=== PATIENT | male | born 1980 | race Two or more races ===

== ENCOUNTER 2019-12-26 19:57 | Emergency (ER) | payer BC, OTHER ==
[~2019-12-26] VITALS: Ht 172.7 cm; Wt 91.2 kg
[~2019-12-26 19:57] MED LIST: AZITHROMYCIN250 MG PO; CETIRIZINE HCL5 MG PO; DUONEB NEB; MULTI-VITAMIN1 EACH PO; PREDNISONE20 MG PO; SUMATRIPTAN SUC25 MG PO; SYMBICORT 16010.2 GM; SYMBICORT 16010.2 GM INH; TAMIFLU75 MG PO; ZOFRAN4 MG SL
--- OUTSIDE RECORDS SUMMARY | 2019-12-26 19:59 | XMS REPORT | Summary of Care ---
Author Author [facility] - Health Organization [facility] - Health Address Unknown Phone Unavailable Care Team Providers Care Treating Plant Supervisor Name Role Phone Oliver Luis PCP Reason for Visit * Reason Comments FLOATERS Headache Pressure Behind The Eyes Encounter Details Care Team Description Date Type Department BradenJoseluis MD [address] [place] [address] Glaucoma suspect of both eyes (Primary D x); Refractive error; Other chronic allergic conjunctivitis of both eyes 09/13/2019 Office Visit [facility] [address], [address] [place] [address] Allergies Comments Active Allergy Reactions Severity Noted Date lightheadedness Codeine Unknown - See 02/05/2010 comments Iodine Itching, 02/05/2010 Swelling Penicillins Itching documented as of this encounter (statuses as of 09/13/2019) Medications End Date Status Medication Sig Dispensed Refills Start Date Active budesonide-formoterol Inhale 2 10.2 g 2 02/24 (SYMBICORT) 160-4.5 Puffs 2 (two) 6 mcg/actuation times daily. inhalerIndications: Asthma, moderate persistent, with acute exacerbation Active albuterol (PROAIR HFA) 90 Inhale 2 8.5 g 1 mcg/actuation Puffs every 6 6 inhalerIndications: (six) hours Asthma, moderate as needed for persistent, with acute Wheezing or exacerbation Shortness of Breath. Active meclizine 25 mg Take 1 tablet 20 tablet 0 03/13/20 1 tabletIndications: Benign by mouth 9 paroxysmal positional every 6 (six) vertigo of left ear hours as needed for Dizziness. Active ondansetron (ZOFRAN ODT) Take 1 tablet 15 tablet 0 4 mg disintegrating by mouth 9 tabletIndications: Benign every 8 paroxysmal positional (eight) hours vertigo of left ear as needed for Nausea and Vomiting (N/V). Active Olopatadine (PATADAY) 0.2 Place 1 Drop 2.5 mL 3 % ophthalmic in each eye 0 dropsIndications: Other daily. 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 Headache, acute 03/02/2013 Allergic rhinitis 03/02/2013 Fever 03/02/2013 Hyposmia 03/02/2013 documented as of this encounter (statuses as of 09/13/2019) Immunizations Name Administration Dates Next Due Influenza Virus Vaccine 04/21/2016 Quad ID [id number] YRS Pneumococcal 13 04/21/2016 Conjugate, PCV13 (Prevnar 13) documented as of this encounter Social History Date Tobacco Use Types Packs/Day Years Used Never Smoker Smokeless Tobacco: Never Used Drinks/Week oz/Week Comments Alcohol Use No Sex Assigned at Date Recorded Not on file Industry Job Start Date Occupation Not on file Not on file Not on file Travel End Travel History Travel Start No recent travel history available. documented as of this encounter Last Filed Vital Signs Reading Time Taken Comments Vital Sign - - Blood Pressure - - Pulse - - Temperature - - Respiratory Rate - - Oxygen Saturation - - Inhaled Oxygen Concentration 88 kg (194 lb) 09/13/2019 9:32 AM KINDERGARTEN TEACHER ASSISTANT Weight - - Height 29.5 03/13/2019 9:40 PM CDT Body Mass Index documented in this encounter Progress Notes * Joseluis Feliciano MD - 09/13/2019 9:00 AM KINDERGARTEN TEACHER ASSISTANT Cc: FLOATERS; Headache; and Pressure Behind The Eyes Shayla Almanza is a 39 year old male. HPI Pt self-referred for glaucoma evaluation due to strong family history (both mate rnal grandparents, father - vision loss in all). Vision stable OU but patient s uffers from [place] chronic (had head trauma as a child in [place]). Also states he is having some syncopal episodes intermittently over the past yea r; has not seen PCP or other doctor to investigate. No history of direct eye trauma, no history of eye surgery or laser. Past Medical History: Diagnosis Date Allergic rhinitis Asthma Hyposmia Sinusitis Review of Systems Reviewed ROS done by the theater technician during this encounter and there are addition s noted above. Assessment ICD-10-CM ICD-9-CM 1. Glaucoma suspect of both eyes H40.003 365.00 2. Refractive error H52.7 367.9 3. Other chronic allergic conjunctivitis of both eyes H10.45 372.14 Plan Reju was seen today for floaters, headache and pressure behind the eyes. Diagnoses and all orders for this visit: Glaucoma suspect of both eyes -IOP stable OU with nl K pach OU -Open angles on gonio -Baseline disc photos today for mildly suspicious ONH appearance, obeying ISNT r ule OU -Plan for baseline HVF and OCT at [place]; if any changes noted, can consider startin g therapy and setting goal target IOP Refractive error -Continue current glasses rx Other chronic allergic conjunctivitis of both eyes - Olopatadine (PATADAY) 0.2 % ophthalmic drops; Place 1 Drop in each eye arlene ly. As needed for eye allergy symptoms (itching, irritation, etc.) - Can also use OTC zaditor BID PRN OU if cost too high for pataday - AT's PRN OU Dispo: 2-3 months with HVF and OCT OU I discussed the case and examined the patient (on 09/13/19) with Dr. Stanley and agree with his findings and assessment and plan. Joseluis Feliciano MD Hand Tool Filer Dept. of Ophthalmology & Visual Sciences [facility] ERGARTEN TEACHER ASSISTANT documented in this encounter Plan of Treatment Health Maintenance Due Date Last Done Comments VARICELLA VACCINES (1 of 1983 2 - 2-dose childhood series) DTaP,Tdap,and Td Vaccines 1993 (1 - Tdap) INFLUENZA VACCINE (#1) 2019 PNEUMOCOCCAL 0-64 YEARS Aged Out 04/21/2016 No adama gisele eligible based COMBINED SERIES on patient's age to complete this topic documented as of this encounter Procedures Comments Procedure Name Priority Date/Time Associated Diag nosis OU FUNDUS Routine 09/13/2019 Glaucoma suspec t of both PHOTOGRAPHY/STEREO FUND, eyes BOTH EYES documented in this encounter Results * OU FUNDUS PHOTOGRAPHY/STEREO FUND, BOTH EYES (09/13/2019) Impressions Performed At [facility] and [facility]: baseline / glaucoma suspect documented in this encounter Visit Diagnoses Diagnosis Glaucoma suspect of both eyes - Primary Preglaucoma, unspecified Refractive error Unspecified disorder of refraction and accommodation Other chronic allergic conjunctivitis o f both eyes documented in this encounter Insurance Type Payer Benefit Subscriber ID Effective Phone Address Plan / Dates Group PPO/POS BCBS OF [place] - [facility] BCBS OF [id number] 2018 - EMPLOY[place] Present EMPLOYEE PLAN documented as of this encounter
--- OUTSIDE RECORDS SUMMARY | 2019-12-26 19:59 | XMS REPORT | Summary of Care ---
Author Author [facility] - Health Organization [facility] - Health Address Unknown Phone Unavailable Care Team Providers Care Window And Siding Craftsman Name Role Phone Oliver Luis PCP Reason for Visit * Reason Comments FLOATERS Headache Pressure Behind The Eyes Encounter Details Care Team Description Date Type Department BradenJoseluis MD [id number] [place] [address] Glaucoma suspect of both eyes (Primary D x); Refractive error; Other chronic allergic conjunctivitis of both eyes 09/13/2019 Office Visit [facility] [address], [address] [place] [address] Allergies Comments Active Allergy Reactions [...] 88 kg (194 lb) 09/13/2019 9:32 AM PRODUCTION CONTROLLER Weight - - Height 29.5 03/13/2019 9:40 PM CDT Body Mass Index documented in this encounter Progress Notes * Joseluis Feliciano MD - 09/13/2019 9:00 AM PRODUCTION CONTROLLER Cc: FLOATERS; Headache; and Pressure Behind The [...] of Systems Reviewed ROS done by the eeg technician during this encounter and there are [...] and assessment and plan. Joseluis Feliciano MD Major Assembly Inspector Dept. of Ophthalmology & Visual Sciences [facility] UCTION CONTROLLER documented in this encounter Plan of Treatment [...] Plan / Dates Group PPO/POS BCBS OF [place] - [facility] BCBS OF [id number] 2018 - EMPLOY[place] Present EMPLOYEE PLAN documented as of this encounter
--- OUTSIDE RECORDS SUMMARY | 2019-12-26 19:59 | XMS REPORT | Continuity of Care Document ---
Author Author [employer], MONIKA Mott Organization [employer] Address Unknown Phone Unavailable Care Team Providers Care Manufacturing Development Engineer Name Role Phone [employer] Unavailable Un available Problems Problem Status Onset Date Classification Date Reported Comments Source Hypertrophy of nasal turbinates Active 07/02/2018 09/13/2019 [facility] Chronic rhinosinusitis Active 03/02/2013 09/13/2019 [facility] Meningismus Active 03/02/2013 09/13/2019 [facility] Headache, acute Active 03/02/2013 09/13/2019 [facility] Allergic rhinitis Active 03/02/2013 09/13/2019 [facility] Fever Active 03/02/2013 09/13/2019 [facility] Hyposmia Active 03/02/2013 09/13/2019 [facility] Acute neck pain Active 03/14/2019 [facility] Dizziness Active 03/14/2019 [facility] Glaucoma suspect of both eyes Active 09/13/2019 [facility] Refractive error Active 09/13/2019 [facility] Other chronic allergic conjunctivitis of both eyes Active 09/13/2019 [facility] Benign paroxysmal positional vertigo of left ear Active 03/13/2019 [facility] Acute nonintractable headache, unspecifi ed headache type Active 03/13/2019 [facility] Nausea Active 03/13/2019 [facility] Medications Medication Details Route Status Patient Instructions Ordering Provider Order Date Source Olopatadine (PATADAY) 0.2 % ophthalmic drops Place 1 Drop in each eye daily. As needed for eye allergy symptoms (itching, irritation, etc.) Ophthalmic Active 09/13/2019 [facility] meclizine 25 mg tablet Take 1 tablet by mouth every 6 (six) hours as needed for Dizziness. Oral Active 03/13/2019 [facility] ondansetron (ZOFRAN ODT) 4 mg disintegrating tablet Take 1 tablet by mouth every 8 (eight) hours as needed for Nausea and Vomiting (N/V). Oral Active 03/13/2019 [facility] ALBUTEROL SULFATE HFA INHALE I nhale. Inhalation No Longer Active 03/13/2019 [facility] dolutegravir 50 mg tablet Take 1 tablet by mouth daily. Oral No Longer Active 09/20/2018 [facility] emtricitabine-tenofovir, TDF, 200-300 mg tablet Take 1 tablet by mouth daily. Oral No Longer Active 09/20/2018 [facility] budesonide-formoterol (SYMBICORT) 160-4. 5 mcg/actuation inhaler Inhale 2 Puffs 2 (two) times daily. Inhalation Active 03/24/2016 [facility] albuterol (PROAIR HFA) 90 mcg/actuation inhaler Inhale 2 Puffs every 6 (six) hours as needed for Wheezing or Shortness of Breath. Inhalation Active 03/24/2016 [facility] fluticasone (FLONASE) 50 mcg/actuation nasal spray Use 2 Sprays in each nostril 2 (two) times daily. Nasal No Longer Active 03/24/2016 [facility] Allergies, Adverse Reactions, Alerts Substance Category Reaction Severity Reaction type Status Date Reported Comments Source Daniel Garecs nown - See comments Propensity to adverse reacti ons Active 02/05/2010 [facility] Iodine Itch ing, Swelling , Propensity to adverse reacti ons Active 02/05/2010 [facility] Penicillins Itching Propensity to adverse reacti ons Active [facility] Immunizations Immunization Date Given Site Status Last Updated Comments Source Pneumococcal 13 Conjugate, PCV13 (Prevnar 13) 04/21/2016 [facility] Influenza Virus Vaccine Quad ID [id number] YRS 04/21/2016 completed [facility] Results Order Name Results Value Reference Range Date Interpretation Comments Source OU FUNDUS PHOTOGRAPHY/STEREO FUND, BOTH EYES <p>OD and OS: baseline / glaucoma suspect</p> OD and OS: baseline / glaucoma suspect 09/13/2019 [facility] Pathology Reports No Data Provided for This Section Diagnostic Reports No Data Provided for This Section Consultation Notes No Data Provided for This Section Discharge Summaries No Data Provided for This Section History and Physicals No Data Provided for This Section Vital Signs Vital Sign Value Date Comments Source Weight 87.998 09/13/2019 [facility] Systolic (mm Hg) 128 03/14/2019 [facility] Diastolic (mm Hg) 75 03/14/2019 [facility] Heart Rate 68 03/14/2019 [facility] Temperature Oral (F) 36.67 Bella 03/14/2019 [facility] Respitory Rate 16 03/14/2019 [facility] Height 172.7 cm 03/14/2019 [facility] Weight 88.361 03/14/2019 [facility] Systolic (mm Hg) 152 03/13/2019 [facility] Diastolic (mm Hg) 93 03/13/2019 [facility] Heart Rate 71 03/13/2019 [facility] Temperature Oral (F) 36.67 Bella 03/13/2019 [facility] Respitory Rate 18 03/13/2019 [facility] Weight 88.451 03/13/2019 [facility] Encounters Location Location Details Encounter Type Encounter Number Reason For Visit Attending Provider ADM Date DC Date Status Source [facility] Emergency [id number] Shayan Zapien MD 03/13/2019 03/13/2019 [facility] Nurse Visit [id number] Attending Unknown 03/14/2019 03/14/2019 [facility] Hospital Encounter [id number] Rosa Nicolette-Elliott ANP 03/22/2019 03/23/[address] [facility] Orders Only [id number] No Doctor Unassigned 09/13/2019 [facility] [place] Office Visit [id number] Joseluis Feliciano MD 09/13/2019 09/13/2019 [facility] Procedures Procedure Code Date Perfomer Comments Source CONSENT/REFUSAL FOR DIAGNOSIS AND TREATMENT [id number] 09/13/2019 Doctor Unassigned [facility] OU FUNDUS PHOTOGRAPHY/STEREO FUND, BOTH EYES [id number] 09/13/2019 [facility] Health Assessment and Plan No Data Provided for This Section Plan of Care Plan of Care Date Source Upcoming EncountersDateTypeSpecialtyCare TeamDescription 11/12/2019 Office Visit Ophthalmology Braden, Joseluis Allen MD[id number] [phone] (Fax) Health MaintenanceDue DateLast DoneComments VARICELLA VACCINES (1 of 2 - 2-dose childhood series) 1983 DTaP,Tdap,and Td Vaccines (1 - Tdap) 1993 INFLUENZA VACCINE (#1) 2019 PNEUMOCOCCAL 0-64 YEARS COMBINED SERIES Aged Out 04/21/2016 No longer eligible based on patient's age to complete this topic documented as of this encounter 09/13/2019 [facility] INFLUENZA VACCINE (#1) 019 [facility] DTaP,Tdap,and Td Vaccines (1 - Tdap) 2001 [facility] VARICELLA VACCINES (1 of 2 - 13+ 2-dose series) 1995 [facility] DTaP,Tdap,and Td Vaccines (1 - Tdap) 1993 [facility] VARICELLA VACCINES (1 of 2 - 2-dose childhood series) 1983 [facility] Social History Social History Date Source Tobacco UseTypesPacks/DayYears UsedDate Never Smoker Smokeless Tobacco: Never Used Alcohol UseDrinks/Weekoz/WeekComments No Sex Assigned at BirthDate Recorded Not on file Job Start DateOccupationIndustry Not on file Not on file Not on file Travel HistoryTravel StartTravel End No recent travel history available. documented as of this encounter 09/13/2019 [facility] Family History No Data Provided for This Section Advance Directives No Data Provided for This Section Functional Status No Data Provided for This Section
--- OUTSIDE RECORDS SUMMARY | 2019-12-26 19:59 | XMS REPORT | Summary of Care ---
Author Author [facility] - Health Organization [facility] - Health Address Unknown Phone Unavailable Care Team Providers Care Digital Strategist Senior Manager Name Role Phone Oliver Luis PCP Reason for Visit * Reason Comments FLOATERS Headache Pressure Behind The Eyes Encounter Details Care Team Description Date Type Department BradenJoseluis MD [id number] [place] [address] Glaucoma suspect of both eyes (Primary D x); Refractive error; Other chronic allergic conjunctivitis of both eyes 09/13/[address] [facility] [address], [address] [place] [address] Allergies Comments Active Allergy Reactions [...] 88 kg (194 lb) 09/13/2019 9:32 AM BOWLING BALL GRADER AND MARKER Weight - - Height 29.5 03/13/2019 9:40 PM CDT Body Mass Index documented in this encounter Progress Notes * Naomi Christina - 09/13/2019 9:00 AM BOWLING BALL GRADER AND MARKER Disc Photo-OU done Naomi Christina 09/13/2019 10:52 AM ING BALL GRADER AND MARKER * Joseluis Feliciano MD - 09/13/2019 9:00 AM BOWLING BALL GRADER AND MARKER Cc: FLOATERS; Headache; and Pressure Behind The Eyes Shayla Almanza is a 39 year old male. HPI Pt self-referred for glaucoma evaluation due to strong family history (both mate rnal grandparents, father - vision loss in all). Vision stable OU but patient s uffers from [facility] (had head trauma as a child in [place]). Also states he is having some syncopal episodes intermittently over the past yea r; has not seen PCP or other doctor to investigate. No history of direct eye trauma, no history of eye surgery or laser. Past Medical History: Diagnosis Date Allergic rhinitis Asthma Hyposmia Sinusitis Review of Systems Reviewed ROS done by the process engineering technician during this encounter and there are addition s noted above. Assessment ICD-10-CM ICD-9-CM 1. Glaucoma suspect of both eyes H40.003 365.00 2. Refractive error H52.7 367.9 3. Other chronic allergic conjunctivitis of both eyes H10.45 372.14 Plan Shayla was seen today for floaters, headache and [...] and assessment and plan. Joseluis Feliciano MD Gravity Prospecting Supervisor Dept. of Ophthalmology & Visual Sciences [facility] ING BALL GRADER AND MARKER documented in this encounter Plan of Treatment Care Team Description Date Type Specialty Joseluis Feliciano MD [id number] [place], [place] [id number] 11/12/2019 Office Visit Ophthalmology Health Maintenance Due Date Last Done Comments [...] Plan / Dates Group PPO/POS BCBS OF [facility] BCBS OF [id number] 2018 - EMPLOYEE [place] Present EMPLOYEE PLAN documented as of this encounter
--- OUTSIDE RECORDS SUMMARY | 2019-12-26 19:59 | XMS REPORT | Summary of Care ---
Author Author [facility] - Health Organization [facility] - Health Address Unknown Phone Unavailable Care Team Providers Care Information Technology Account Manager Name Role Phone Oliver Luis PCP Encounter Details Care Team Description Date Type Department Doctor Unassigned, [place] [address] [place] [address] 09/13/2019 Orders Only [facility] [address] [place] [address] Allergies Comments Active Allergy Reactions Severity Noted [...] as needed for Nausea and Vomiting (N/V). documented as of this encounter (statuses as [...] of this encounter Last Filed Vital Signs Not on filedocumented in this encounter Plan of Treatment Health [...] Procedure Name Priority Date/Time Associated Diag nosis CONSENT/REFUSAL FOR Routine 09/13/2019 DIAGNOSIS AND TREATMENT 9:17 AM CORRECTIONAL SUPERVISING COOK documented in this encounter Results Not on filedocumented in this encounter Insurance Type Payer Benefit Subscriber ID Effective Phone Address Plan / Dates Group PPO/POS BCBS OF [place] - [facility] BCBS OF [id number] 2018 - EMPLOYEE [place] Present EMPLOYEE PLAN documented as of this encounter
--- OUTSIDE RECORDS SUMMARY | 2019-12-26 20:00 | XMS REPORT | Summary of Care ---
Author Author [facility] - Health Organization [facility] - Health Address Unknown Phone Unavailable Care Team Providers Care Crown Blocker Name Role Phone Oliver Luis PCP Reason for Referral * Radiology Services (STAT) Referred By Contact Referred To Contact Status Reason Specialty Diagnoses / Procedures Naomi Becerra FNP [address] [facility] [address] [place] [address] New Request Diagnostic Diagnoses Radiology Acute pain of right knee P rocedures XR KNEE 3 VW RIGHT Reason for Visit * Reason Comments Knee Pain * Auth/Cert Referred By Contact Referred To Contact Status Reason Specialty Diagnoses / Procedures [facility] [address] [place] [address] Emergency Medicine Encounter Details Care Team Description Date Type Department Naomi Becerra FNP [address] [facility] [address] [place] [address] [phone] Acute pain of right knee (Primary Dx) 10/14/2019 Emergency [facility] [address] [place] [address] Allergies Comments Active Allergy Reactions Severity Noted Date lightheadedness Codeine Unknown - See 02/05/2010 comments Iodine Itching, 02/05/2010 Swelling Penicillins Itching documented as of this encounter (statuses as of 10/14/2019) Medications End Date Status Medication Sig Dispensed [...] eye allergy eyes symptoms (itching, irritation, etc.) 10/19/2019 Active ibuprofen 600 mg Take 1 tablet 20 tablet 0 02 tabletIndications: Acute by mouth 0 pain of right knee every 6 (six) hours as needed for Pain (scale 4-6) for up to 5 days. 10/18/2019 Active traMADol 50 mg Take 1 tablet 15 tablet 0 tabletIndications: Acute by mouth 0 pain of right knee every 6 (six) hours as needed for Pain (scale 4-6) for up to 4 days. 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 Headache, acute 03/02/2013 Allergic rhinitis 03/02/2013 Fever 03/02/2013 Hyposmia 03/02/2013 documented as of this encounter (statuses as of 10/14/2019) Immunizations Name Administration Dates Next Due Influenza [...] Signs Reading Time Taken Comments Vital Sign 136/98 10/14/2019 7:17 PM CDT Blood Pressure 98 10/14/2019 7:17 PM CDT Pulse 36.9 C (98.4 F) 10/14/2019 7:17 PM CDT Temperature 16 10/14/2019 7:17 PM CDT Respiratory Rate 98% 10/14/2019 7:17 PM CDT Oxygen Saturation - - Inhaled Oxygen Concentration 89.8 kg (198 lb) 10/14/2019 5:31 PM CDT Weight 172.7 cm (5' 8") 10/14/2019 5:16 PM CDT Height 30.11 10/14/2019 5:16 PM CDT Body Mass Index documented in this encounter Discharge Instructions * Instructions* Naomi Becerra FNP - 10/14/2019 Return to ER for new or worsening symptoms. * Attachments The following attachments cannot be sent through Care Everywhere.* Strains and Sprains, Treating (Guyanese) * RICE (Guyanese) documented in this encounter Plan of Treatment Care Team Description Date Type Specialty Joseluis Feliciano MD [id number] [place] [address] [phone] 11/12/2019 Office Visit Ophthalmology Health Maintenance Due [...] Procedure Name Priority Date/Time Associated Diag nosis XR KNEE 3 VW RIGHT STAT 10/14/2019 Acute pain of right knee 6:13 PM CDT documented in this encounter Results * XR KNEE 3 VW RIGHT (10/14/2019 6:13 PM CDT) Specimen Impressions Performed At Impression: PACS/VR/DOSE No acute fracture or dislocation. Small -to-moderate knee effusion. RL: [id number] AF: [id number] End of Report Narrative Performed At Exam: Right Knee, 10/14/2019 5:30 PM. PACS/VR/DOSE Ordering Physician: NAOMI BECERRA. History: Right knee pain, injury. Technique: 3 views of the right knee. Comparison: None. Findings: There is no acute fracture or dislocati on. Joint spaces are preserved. There is minimal spurring at the intrac ondylar notch. Small to moderate knee effusion is present. There is mild anterior knee soft tissue swelling. Procedure Note [facility], Radiant Results Inft User - 10/14/2019 6:22 PM CDT Exam: Right Knee, 10/14/2019 5:30 PM. Ordering Physician: NAOMI BECERRA. History: Right knee pain, injury. Technique: 3 views of the right knee. Comparison: None. Findings: There is no acute fracture or dislocation. Joint spaces are preserved. There is minimal spurring at the intracondylar notch. Small to moderate knee effusion is present. There is mild anterior knee soft tissue swelling. IMPRESSION Impression: No acute fracture or dislocation. [id number]-misysmoo knee effusion. RL: [id number] AF: [id number] End of Report Performing Organization Address City/State/Zipcode Ph one Number PACS/VR/DOSE documented in this encounter Visit Diagnoses Diagnosis Acute pain of right knee - Primary documented in this encounter Administered Medications Action Date Dose Rate Site Medication Order MAR Action 10/14/2019 5:39 PM CDT 10 mg cyclobenzaprine (FLEXERIL) tablet 10 mg Given 10 mg, Oral, ONCE, 1 dose, 10/14/19 at 1845, Routine 10/14/2019 6:43 PM CDT 50 mcg Left Del toid-IM FENTanyl PF (SUBLIMAZE (PF)) injection Given 50 mcg 50 mcg, Intramuscular, ONCE, 1 dose, Harris n 10/14/19 at 1945, STAT 10/14/2019 5:39 PM CDT 800 mg ibuprofen (IBU) tablet 800 mg Given 800 mg, Oral, ONCE, 1 dose, 10/14/19 at 1845, [place] documented in this encounter Insurance Type Payer Benefit Subscriber ID Effective Phone Address Plan / Dates Group PPO/POS BCBS OF [place] - [facility] BCBS OF [id number] 2018 - EMPLOYEE [place] Present EMPLOYEE PLAN documented as of this encounter
--- OUTSIDE RECORDS SUMMARY | 2019-12-26 20:00 | XMS REPORT | Summary of Care ---
Author Author [facility] - Health Organization [facility] - Health Address Unknown Phone Unavailable Care Team Providers Care Dials Inspector Name Role Phone Oliver Luis PCP Reason for Visit * Reason Comments LAB covid exposure Encounter Details Care Team Description Date Type Department Steven Mcgraw MD [address] [place] [address] Nurse, [facility] Suspected Covid-19 Virus Infection (Prim jordy Dx) 11/08/2019 Nurse Visit [facility] [address], [address] [place] [address] Allergies Comments Active Allergy Reactions Severity Noted Date lightheadedness Codeine Unknown - See 02/05/2010 comments Iodine Itching, 02/05/2010 Swelling Penicillins Itching documented as of this encounter (statuses as of 11/09/2019) Medications End Date Status Medication Sig Dispensed [...] mg Take 1 tablet 20 tablet 0 03/13/ 1 tabletIndications: Benign by mouth 9 paroxysmal [...] as of this encounter (statuses as of 11/09/2019) Active Problems Problem Noted Date Hypertrophy of nasal turbinates 07/02/2018 Chronic rhinosinusitis 03/02/2013 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 Headache, acute 03/02/2013 Allergic rhinitis 03/02/2013 Fever 03/02/2013 Hyposmia 03/02/2013 documented as of this encounter (statuses as of 11/09/2019) Immunizations Name Administration Dates Next Due Influenza [...] filedocumented in this encounter Plan of Treatment Care Team Description Date Type Specialty BradenJoseluis MD [id number] [place] [address] [phone] 12/24/2019 Office Visit Ophthalmology Date/Time Name Type Priority Associated Diag noses 11/08/2019 6:26 PM CDT CORONAVIRUS COVID-19 LAB Routine Suspected Covid-19 Virus TESTING Infection Order Schedule Name Type Priority Associated Diag noses Expected: 11/08/2019, Expires: 1 CORONAVIRUS COVID-19 LAB Routine Suspected Covid-19 Virus TESTING Infection Health Maintenance Due Date Last Done Comments VARICELLA VACCINES (1 of 1983 2 - 2-dose childhood series) DTaP,Tdap,and Td Vaccines 1993 (1 - Tdap) PNEUMOCOCCAL 0-64 YEARS 06/16/2016 04/21/2016 COMBINED SERIES (1 of 1 - PPSV23) INFLUENZA VACCINE (#1) 2019 documented as of this encounter Results Not on filedocumented in this encounter Visit Diagnoses Diagnosis Suspected Covid-19 Virus Infection - Pr imary documented in this encounter Insurance Type Payer Benefit Subscriber ID Effective Phone Address Plan / Dates Group PPO/POS BCBS OF [facility] BCBS OF [id number] 2018 - EMPLOYEE [place] Present EMPLOYEE PLAN documented as of this encounter
--- OUTSIDE RECORDS SUMMARY | 2019-12-26 20:00 | XMS REPORT | Continuity of Care Document ---
Author Author [facility] t Organization [facility] t Address [address] [place] [address] Phone Unavailable Care Team Providers Care Vp Informatics Name Role Phone Patricia LOMBARDO MD PCP Nurse, [facility] Attphys Unavail able Naomi Suarez Attphys Tiffany Feliciano MD Attphys Doctor Unassigned, Name No Attphys Unavailable KIMBER MCBRIDE Attphys Unavailable Nicolette-Rosa Mccarty Attphys [phone] Nurse, [facility] Attphys Unavailable Shayan Zapien MD Attphys RADHA ROMERO Attphys Unavailable Patricia LOMBARDO Attphys Unavailable Patricia LOMBARDO Admphys Unavailable Payers Payer Name Policy Type Policy Number Effective Date Expiration Date S a[place] [employer] [place] Ppo [id number] 2018 00:00:[address] [facility] Problems Condition Name Condition Details Condition Category Status Onset Date Resolution Date Last Treatment Date Treating Clinician Comments Source Hypertrophy of nasal turbinates Hypertrophy of nasal turbinates Active 07/02/2018 09/13/2019 [facility] Health Condition Active 2018-07-02 00:00:00 2019-09-13 16:52:53 [facility] Chronic rhinosinusitis [employer] karson rhinosinusitis Active 03/02/2013 09/13/2019 [facility] Health Condition Active 2013-03-02 00:00:00 2019-09-13 16:52:53 [facility] Meningismus Meni ngismus Active 03/02/2013 09/13/2019 [facility] Health Condition Active 2013-03-02 00:00:00 2019-09-13 16:52:53 [facility] Headache, acute Head ache, acute Active 03/02/2013 09/13/2019 [facility] Health Condition Active 2013-03-02 00:00:00 2019-09-13 16:52:5 3 [facility] Allergic rhinitis Carlos rgic rhinitis Active 03/02/2013 09/13/2019 [facility] Condition Active 2013-03-02 00:00:00 2019-09-13 1 6:52:53 [facility] Fever Feve r Active 03/02/2013 09/13/2019 [facility] Condition Active 2013-03-02 00:00:00 2019-09-13 16:52:53 [facility] Hyposmia Hypo smia Active 03/02/2013 09/13/2019 [facility] Condition Active 2013-03-02 00:00:00 2019-09-13 16:52:53 [facility] Chest pain Chest pain Problem Active [facility] Headache Headache Problem Active [facility] Acute neck pain Acut e neck pain Active 03/14/2019 [facility] Health Diagnosis Active 2019-03-14 02:42:39 [facility] Dizziness Dizz iness Active 03/14/2019 [facility] Health Diagnosis Active 2019-03-14 02:42:39 [facility] Glaucoma suspect of both eyes Glaucoma suspect of both eyes Active 09/13/2019 [facility] Health Diagnosis Active 2019-09-13 1 6:52:53 [facility] Refractive error Refr active error Active 09/13/2019 [facility] Health Diagnosis Active 2019-09-13 16:52:53 [facility] Other chronic allergic conjunctivitis of both eyes Other chronic allergic conjunctivitis of both eyes Active 09/13/2019 [facility] Health Diagnosis Active 2019-09-13 16:52:53 [facility] Benign paroxysmal positional vertigo of left ear Benign paroxysmal positional vertigo of left ear Active 03/13/2019 [facility] Health Diagnosis Active 2019-03-13 20:43:12 [facility] Nausea Naus ea Active 03/13/2019 [facility] Diagnosis Active 2019-03-13 20:43:12 [facility] Allergies, Adverse Reactions, Alerts Allergy Name Allergy Type Status Severity Reaction(s) Onset Date Inacti ve Date Treating Clinician Comments Source 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 2019-05-12 00:00:00 [facility] Penicillin Allergy to Substance Active ANAPHYL AXIS THROAT SWELLING , HARD TO BREATH 2018-10-20 00:00:00 [facility] Kiwi Allergy to Substance Active ITCHING,SWELLING,HIVES 2018 00:00:00 [facility] Iodine Allergy to Substance Active Moderate ITCHING WITH TO PICAL IODINE 2018-09-04 00:00:00 [facility] shellfish derived Allergy to Substance Active Severe ANAPHYLA XIS 2018-09-04 00:00:00 [facility] Pork/Porcine Containing Products Allergy to Substance Active 2017-03-27 00:00:00 [facility] Codeine Allergy to Substance Active Severe THROAT SPASM 2017-03-26 00: 00:00 [facility] Penicillins DA Active U 2017-02-11 00:00:00 [facility] Shellfish DA Active SV 2011-10-25 00:00:00 [facility] iodine DA Active SV 2011-10-25 00:00:00 [facility] codeine DA Active SV 2010-03-13 00:00:00 [facility] Codeine Codeine Active Unknown - See comments 2010-02-05 00:00:00 [facility] Iodine Iodine Active OTH Itching, Swelling 2010-02-05 00:00:00 [facility] Penicillins Penicillins Active Itching [facility] Social History Smoking Status Start Date Stop Date Source Tobacco smoking status WAIS Frank abdias [facility] Medications Ordered Medication Name Filled Medication Name Start Date Stop Da te Current Medication? Ordering Clinician Indication Dosage Frequency Signature (SIG) Comments Components Source Olopatadine (PATADAY) 0.2 % ophthalmic drops 2019-09-13 00:00:[address] 1 Drop in each eye daily. As neede d for eye allergy symptoms (itching, irritation, etc.) [facility] Azithromycin (Z-Bennie) 250 Mg Tablet Azithromycin (Z-Bennie) 250 Mg Tablet 2019-09-10 00:00:00 Yes Ever Negron Md 250 Use As Directed [facility] Ondansetron Hcl (Zofran*) 4 Mg Tablet Ondansetron Hcl (Zofra n*) 4 Mg Tablet 2019-09-10 00:00:00 Yes Ever Negron Md 4 Every 6 Hours as needed for Nausea [facility] Oseltamivir Phosphate (Tamiflu) 75 Mg Cap Oseltamivir Phosphate (Tamiflu) 75 Mg Cap 2019-09-10 00:00:00 Yes Ever Negron Md 75 Twice A Day [facility] Prednisone 20 Mg Tab Prednisone 20 Mg Tab 2019-09-10 00:00:00 Yes Ever Negron Md 20 Daily [facility] meclizine 25 mg tablet 2019-03-13 00:00:00 Yes Take 1 tablet by mouth every 6 (six) hours as needed for Dizziness. [facility] ondansetron (ZOFRAN ODT) 4 mg disintegrating tablet 03-13 00:00:00 Yes Take 1 tablet by mouth every 8 (eight) hours as needed for Nausea and Vomiting (N/V). [facility] ALBUTEROL SULFATE HFA INHALE 2019-03-13 00:00:00 No Inhale. [facility] dolutegravir 50 mg tablet 2018-09-20 00:00:00 No Take 1 tablet by mouth daily. [facility] emtricitabine-tenofovir, TDF, 200-300 mg tablet 2018-09-20 00:00 :00 No Take 1 tablet by mouth daily. [facility] budesonide-formoterol (SYMBICORT) 160-4.5 mcg/actuation inha ler 2016-03-24 00:00:00 Yes Inhale 2 Puffs 2 (two) times daily. [facility] albuterol (PROAIR HFA) 90 mcg/actuation inhaler 2016-03-24 00:00 :00 Yes Inhale 2 Puffs every 6 (six) hours as needed for Wheezing or Shortness of Breath. [facility] fluticasone (FLONASE) 50 mcg/actuation nasal spray 2016-02-25 00:00:00 No Use 2 Sprays in each nostril 2 (two) times khushbu y. [facility] Budesonide/Formoterol Fumarate (Symbicor t 160-4.5 Mcg Inhaler) 10.2 Gm Hfa.aer.ad Budesonide/Formoterol Fumarate (Symbicor t 160-4.5 Mcg Inhaler) 10.2 Gm Hfa.aer.ad Yes 2 Three Times A Day [facility] Cetirizine Hcl 5 Mg Tablet Cetirizine Hcl 5 Mg Tablet Yes 5 As Needed as needed for Allergy [facility] Duoneb Duoneb Yes As Needed [facility] Multivitamin (Multi-Vitamin Daily) 1 Each Tablet Multi vitamin (Multi-Vitamin Daily) 1 Each Tablet Yes 1 Daily [facility] Sumatriptan Succinate 25 Mg Tablet Sumatriptan Succinate 25 Mg Tablet Yes 50 Daily as needed for Migraine [facility] Prednisone 20 Mg Tab, 20 Mg Oral Prednisone 20 Mg Tab, 20 Mg Ora l 2018-10-20 00:00:00 No 20 [facility] Azithromycin (Z-Bennie) 250 Mg Tablet, 250 Mg Oral Azithr omycin (Z-Bennie) 250 Mg Tablet, 250 Mg Oral 2017-04-01 00:00:00 No 250 Use As Directed [facility] Budesonide/Formoterol Fumarate (Symbicor t 160-4.5 Mcg Inhaler) 10.2 Gm Hfa.aer.ad, Budesonide/Formoterol Fumarate (Symbicor t 160-4.5 Mcg Inhaler) 10.2 Gm Hfa.aer.ad, 2017-04-01 00:00:00 No as needed for Allergy [facility] Vital Signs Vital Name Observation Time Observation Value Comments Source Weight 2019-09-13 15:32:00 [facility] Systolic (mm Hg) 2019-03-14 02:40:00 [facility] Diastolic (mm Hg) 2019-03-14 02:40:00 [facility] Heart Rate 2019-03-14 02:40:00 [facility] Temperature Oral (F) 2019-03-14 02:40:00 36.67 Bella [facility] Respitory Rate 2019-03-14 02:40:00 [facility] Height 2019-03-14 02:40:00 [facility]7 [facility] Weight 2019-03-14 02:40:00 [facility] Systolic (mm Hg) 2019-03-13 19:50:00 [facility] Diastolic (mm Hg) 2019-03-13 19:50:00 [facility] Heart Rate 2019-03-13 19:50:00 [facility] Temperature Oral (F) 2019-03-13 19:50:00 36.67 Bella [facility] Health Respitory Rate 2019-03-13 19:50:00 [facility] Weight 2019-03-13 19:50:00 [facility] Procedures Procedure Date / Time Performed Performing Clinician [facility] e CONSENT/REFUSAL FOR DIAGNOSIS AND TREATMENT 2019-09-13 21:17 :41 Doctor Unassigned, [place] [facility] FUNDUS PHOTOGRAPHY/STEREO FUND, BOTH EYES 2019-09-13 00:0 0:00 Joseluis Feliciano [facility] Plan of Care Planned Activity Planned Date Details Comments Source Future Scheduled Test Plan of Care [code = 86040-4] [facility] Future Scheduled Test Plan of Care [code = 15055-9] [facility] Future Scheduled Test Plan of Care [code = 84925-9] [facility] Future Scheduled Test Plan of Care [code = 31667-3] [facility] Future Scheduled Test Plan of Care [code = 32077-3] [facility] Future Scheduled Test Plan of Care [code = 50527-9] [facility] Encounters Start Date/Time End Date/Time Encounter Type Admission Type Attendi [facility] Facility Care Department Encounter ID Source 2019-11-08 17:15:54 2019-11-09 09:09:52 Nurse Visit [facility] [id number] 2019-10-14 17:19:07 2019-10-14 19:25:00 [facility] [id number] 2019-09-13 15:22:49 2019-09-13 16:52:43 Office Visit BIRDIEOHTrini [facility] [address] [place] [id number] [facility] 2019-09-13 14:17:00 2019-09-13 14:17:00 Outpatient MHSE PUL [address] [place] [address] 2019-09-13 09:22:49 2019-09-13 10:52:43 Office Visit Braden [facility] [id number] 2019-09-13 09:22:49 2019-09-13 10:52:43 Office Visit Braden, [facility] [id number] 2019-09-13 09:22:49 2019-09-13 09:37:49 Office Visit Braden, [facility] [id number] 2019-09-13 09:22:49 2019-09-13 09:37:49 Office Visit Braden, [facility] [id number] 2019-09-13 00:00:00 2019-09-13 00:00:00 Orders Only MHIE ALT [facility] [id number] [facility] 2019-09-13 00:00:00 2019-09-13 00:00:00 Orders Only D shavonne Unassigned, [place] [facility] [id number] 2019-09-10 06:37:00 2019-09-10 08:44:00 Departed Emergency Room [facility] [id number] [facility] 2019-05-12 14:33:00 2019-05-12 17:25:00 Departed Emergency Room 1 KIMBER MCBRIDE [facility] [id number] [facility] 2019-03-22 18:38:16 2019-03-23 04:59:00 Hospital Encounter [facility] [id number] [facility] 2019-03-22 13:38:16 2019-03-22 23:59:00 Hospital Encounter Rosa Goetz [facility] [id number] 2019-03-14 02:32:17 2019-03-14 02:47:17 Nurse Visit [facility] [id number] [facility] 2019-03-13 21:32:17 2019-03-13 21:47:17 Nurse Visit Nurse, [facility] [id number] 2019-03-13 19:55:00 2019-03-13 20:42:00 Emergency [facility] [id number] [facility] 2019-03-13 14:55:00 2019-03-13 15:42:00 Emergency Shayan Zapien [facility] ([facility]) [id number] 2018-10-25 07:20:00 2018-10-25 07:20:00 Registered Surgical Day Car e RADHA PATEL [facility] [id number] [facility] 2018-09-03 21:50:00 2018-09-04 19:03:00 Discharged Inpatient (obs) 1 SERGIO LOMBARDO [facility] [id number] [facility] Results Test Description Test Time Test Comments Results Result Comments Source Lactic Acid Level 2019-05-12 17:05:00 Test Item Lactic Acid Level (test code = Lactic Acid Level) 16.7 4.5- 19.8 [facility] [id number] 17:05:00* Test Item Value Reference Range Interpretation Comments Lactic Acid Level (test code = Lactic Acid Level) 16.7 4.5- 19.8 [facility] Center[facility] - [id number] 15:30:00 [facility] [address] [place] [address] Patient Name: MONIKA MORGAN V MR #: [id number] : 1980 Age/Sex: 39/M Req #: [id number] Adm Physician: Ordered by: KIMBER MCBRIDE MD Report #: [id number] Location: [facility] Room/Bed: Procedure: [id number] HOP D/CXR 2 VIEW - HOPD Exam Date: 05/12/19 Exam Time: 1 510 REPORT STATUS: Signed EXA MINATION: PA and lateral views of the chest. COMPARISON: None CLINICAL HISTORY: Shortness of breath and cough DISCUSSION: Lines/tubes: None. Lungs: The lungs are well inflated and clear. No pneumonia or pulm onary edema. Pleura: No pleural effusion or pneumothorax. Heart and m ediastinum: The cardiomediastinal silhouette is normal. Bones and soft tis sues: No acute bony abnormalities. IMPRESSION: No acute cardiopulmona ry abnormalities. Signed by: Dr. Christel Edward M.D. on 2018 3:31 PM Dictated By: CHRISETL EDWARD MD 30 Transcribed By: CAROL on 05/12/191530 COPY TO: KIMBER MCBRIDE MD CHEST 2 [id number] 13:07:00 [place] [address] Patient Name: MONIKA MORGAN V MR #: [id number] : 1980 Age/Sex: 38/M Req #: [id number] Adm Physician: Ordered by: RADHA ROMERO MD Report #: [id number] Location: [facility] Room/Bed: Procedure: [id number] DX/ CHEST 2 VIEWS Exam Date: Exam Time: REPORT STATUS: Signed EXAMINATION: CHEST 2 EWS INDICATION: Pre-op for left heart cath procedure. COMPARISON: None FINDINGS: TUBES and LINES: None. LUNGS: Lungs are well inflated. Lungs are clear. There is no evidence of pneumonia or pulmonary edema. PLEURA: No pleural effusion or pneumothorax. HEART AND MEDIAS TINUM: The cardiomediastinal silhouette is unremarkable. BONES AND SOF T TISSUES: No acute osseous lesion. Soft tissues are unremarkable. UPPE R ABDOMEN: No free air under the diaphragm. IMPRESSION: No acute rad iographic abnormality. Signed by: Dr. Melinda Chi MD on 10/20/2018 1:09 PM Dictated By: MELINDA CHI MD 1309 COPY TO: Patricia ROMERO MD Prothrombin [id number] 12:38:00* Test Item Value Reference Range Interpretation Comments Prothrombin Time (test code = 5902-2) 11.7 11.9-14.5 L [facility] CenterProthromb Time International Ratio 2018-10-20 12:38:00* Test Item Value Reference Range Interpretation Comments Prothromb Time International Ratio (test code = 6301-6) 0.81 Oral Anticoagulant Therapy INR Values:1. Low Intensity Therapy 1.5 - 2.02 . Moderate Intensity Therapy 2.0 - 3.03. High Intensity Therapy(1) 2.5 - 3. 54. High Intensity Therapy(2) 3.0 - 4.05. Panic Value INR > 5.0 [facility] CenterActivated Partial Thromboplast Time 2018-10-20 12:38:00* Test Item Value Reference Range Interpretation Comments Activated Partial Thromboplast Time (test code = 32387-6) 33.1 23.8-35.5 [facility] [id number] 12:37:00* Test Item Value Reference Range Interpretation Comments Sodium Level (test code = 2951-2) 141 136-145 [facility] CenterPotassium [id number] 12:37:00* Test Item Value Reference Range Interpretation Comments Potassium Level (test code = 2823-3) 3.9 3.5-5.1 [facility] CenterChloride [id number] 12:37:00* Test Item Value Reference Range Interpretation Comments Chloride Level (test code = 2075-0) 106 98-107 [facility] CenterCarbon Dioxide [id number] 12:37:00* Test Item Value Reference Range Interpretation Comments Carbon Dioxide Level (test code = 2028-9) 25 22-29 [facility] CenterAnion [id number] 12:37:00* Test Item Value Reference Range Interpretation Comments Anion Gap (test code = 97441-0) 13.9 8-16 [facility] CenterBlood Urea [id number] 12:37:00* Test Item Value Reference Range Interpretation Comments Blood Urea Nitrogen (test code = 3094-0) 13 7-26 [facility] CenterCreatinine2019-03-29 12:37:00* Test Item Value Reference Range Interpretation Comments Creatinine (test code = 2160-0) 1.30 0.72-1.25 H [facility] CenterBUN/Creatinine [id number] 12:37:00* Test Item Value Reference Range Interpretation Comments BUN/Creatinine Ratio (test code = 3097-3) 10 6-25 [facility] CenterEstimat Glomerular Filtration Rate 2018-10-20 12:37:00* Test Item Value Reference Range Interpretation Comments Estimat Glomerular Filtration Rate (test code = 297887531) > 60 >60 Ranges were taken from the National Kidney Disease Education Program and the [facility] Kid[facility] Foundation literature.Reference ranges:60 or greater: Omboya46-32 ( for 3 consecutive months): Chronic kidney disease 15 or less: Kidney failurePampa Regional Medical CenterGlucose [id number] 12:37:00* Test Item Value Reference Range Interpretation Comments Glucose Level (test code = GQB6204) 92 74-118 [facility] CenterCalcium Lpipy9197-93-42 12:37:00* Test Item Value Reference Range Interpretation Comments Calcium Level (test code = 54631-4) 9.3 8.4-10.2 [facility] CenterTotal [id number] 12:37:00* Test Item Value Reference Range Interpretation Comments Total Bilirubin (test code = 1975-2) 0.5 0.2-1.2 [facility] CenterAspartate Amino Transf (AST/SGOT) 2018-10-20 12:37:00* Test Item Value Reference Range Interpretation Comments Aspartate Amino Transf (AST/SGOT) (test code = Aspartate Amino Transf (AST/SGOT)) 37 5-34 H [facility] CenterAlanine Aminotransferase (ALT/SGPT) 2018-10-20 12:37:00* Test Item Value Reference Range Interpretation Comments Alanine Aminotransferase (ALT/SGPT) (test code = 1742-6) 54 0-55 [facility] CenterTotal [id number] 12:37:00* Test Item Value Reference Range Interpretation Comments Total Protein (test code = 2885-2) 7.3 6.5-8.1 [facility] CenterAlbumin2019-03-29 12:37:00* Test Item Value Reference Range Interpretation Comments Albumin (test code = 1751-7) 4.2 3.5-5.0 [facility] CenterGlobulin2019-03-29 12:37:00* Test Item Value Reference Range Interpretation Comments Globulin (test code = 49966-8) 3.1 2.3-3.5 [facility] CenterAlbumin/Globulin [id number] 12:37:00 * Test Item Value Reference Range Interpretation Comments Albumin/Globulin Ratio (test code = 1759-0) 1.4 0.8-2.0 [facility] CenterAlkaline Bvzbkuffzqg4680-12-81 12:37:00* Test Item Value Reference Range Interpretation Comments Alkaline Phosphatase (test code = 6768-6) 66 40-150 [facility] CenterWhite Blood [id number] 12:25:00* Test Item Value Reference Range Interpretation Comments White Blood Count (test code = 6690-2) 7.52 4.8-10.8 [facility] CenterRed Blood [id number] 12:25:00* Test Item Value Reference Range Interpretation Comments Red Blood Count (test code = 789-8) 5.48 4.3-5.7 [facility] CenterHemoglobin2019-03-29 12:25:00* Test Item Value Reference Range Interpretation Comments Hemoglobin (test code = 69658-5) 15.2 14.0-18.0 [facility] CenterHematocrit2019-03-29 12:25:00* Test Item Value Reference Range Interpretation Comments Hematocrit (test code = 4544-3) 46.0 38.2-49.6 [facility] CenterMean Corpuscular [id number] 12:25:00* Test Item Value Reference Range Interpretation Comments Mean Corpuscular Volume (test code = 787-2) 83.9 81-99 [facility] CenterMean Corpuscular Vjiuhjpbby9185-89-68 12:25:00* Test Item Value Reference Range Interpretation Comments Mean Corpuscular Hemoglobin (test code = 785-6) 27.7 28-32 L [facility] CenterMean Corpuscular Hemoglobin Concent 2018-10-20 12:25:00* Test Item Value Reference Range Interpretation Comments Mean Corpuscular Hemoglobin Concent (test code = 786-4) 33.0 31-35 [facility] CenterRed Cell Distribution [id number] 12:25:00* Test Item Value Reference Range Interpretation Comments Red Cell Distribution Width (test code = 51932-9) 13.8 11.7 -14.4 [facility] CenterPlatelet [id number] 12:25:00* Test Item Value Reference Range Interpretation Comments Platelet Count (test code = 777-3) 303 140-360 [facility] CenterNeutrophils (%) (Auto)2018-10-20 12:25:00 * Test Item Value Reference Range Interpretation Comments Neutrophils (%) (Auto) (test code = 38325-1) 58.1 38.7-80.0 [facility] CenterLymphocytes (%) (Auto)2018-10-20 12:25:00 * Test Item Value Reference Range Interpretation Comments Lymphocytes (%) (Auto) (test code = 736-9) 25.4 18.0-39.1 [facility] CenterMonocytes (%) (Auto)2018-10-20 12:25:00* Test Item Value Reference Range Interpretation Comments Monocytes (%) (Auto) (test code = 5905-5) 9.4 4.4-11.3 [facility] CenterEosinophils (%) (Auto)2018-10-20 12:25:00 * Test Item Value Reference Range Interpretation Comments Eosinophils (%) (Auto) (test code = 713-8) 6.0 0.0-6.0 [facility] CenterBasophils (%) (Auto)2018-10-20 12:25:00* Test Item Value Reference Range Interpretation Comments Basophils (%) (Auto) (test code = 706-2) 0.7 0.0-1.0 [facility] CenterIM GRANULOCYTES %2018-10-20 12:25:00* Test Item Value Reference Range Interpretation Comments IM GRANULOCYTES % (test code = IM GRANULOCYTES %) 0.4 0.0- 1.0 [facility] CenterNeutrophils # (Auto)2018-10-20 12:25:00* Test Item Value Reference Range Interpretation Comments Neutrophils # (Auto) (test code = 751-8) 4.4 2.1-6.9 [facility] CenterLymphocytes # (Auto)2018-10-20 12:25:00* Test Item Value Reference Range Interpretation Comments Lymphocytes # (Auto) (test code = 74405-7) 1.9 1.0-3.2 [facility] CenterMonocytes # (Auto)2018-10-20 12:25:00* Test Item Value Reference Range Interpretation Comments Monocytes # (Auto) (test code = 742-7) 0.7 0.2-0.8 [facility] CenterEosinophils # (Auto)2018-10-20 12:25:00* Test Item Value Reference Range Interpretation Comments Eosinophils # (Auto) (test code = 711-2) 0.5 0.0-0.4 H [facility] CenterBasophils # (Auto)2018-10-20 12:25:00* Test Item Value Reference Range Interpretation Comments Basophils # (Auto) (test code = 704-7) 0.1 0.0-0.1 [facility] CenterAbsolute Immature Granulocyte (auto 2018-10-20 12:25:00* Test Item Value Reference Range Interpretation Comments Absolute Immature Granulocyte (auto (aundrea t code = Absolute Immature Granulocyte (auto) 0.03 0-0.1 [facility] CenterCreatine Kinase SD7073-15-03 18:03:00* Test Item Value Reference Range Interpretation Comments Creatine Kinase MB (test code = 08427-5) 2.50 0-5.0 [facility] [id number] 18:03:00* Test Item Value Reference Range Interpretation Comments Troponin I (test code = WWL7787) < 0.001 0-0.300 [facility] CenterCreatine Kinase CZ4934-65-64 18:03:00* Test Item Value Reference Range Interpretation Comments Creatine Kinase MB (test code = 92374-3) 2.50 0-5.0 [place] [id number] 18:03:00* Test Item Value Reference Range Interpretation Comments Troponin I (test code = CVV4871) < 0.001 0-0.300 [facility] CenterCreatine Jxvqbp3900-19-56 17:58:00* Test Item Value Reference Range Interpretation Comments Creatine Kinase (test code = 2157-6) 373 30-200 H [facility] CenterCreatine Fjduxm3843-30-46 17:58:00* Test Item Value Reference Range Interpretation Comments Creatine Kinase (test code = 2157-6) 373 30-200 H [facility] CenterMRI BRAIN LV3903-16-00 12:52:00 [place] [address] Patient Name: MONIKA MORGAN V MR #: [id number] : 1980 Age/Sex: 38/M Req #: Adm Physician: SERGIO LOMBARDO MD Ordered by: Report #: [id number] Location: [facility] Room/Bed: [place] [address] Procedure: Exam Date: Exam Time: REPORT STATUS: Cancelled EXAMINATION: MRI of the brain without contrast. HISTORY: D izziness, nausea for the last day, with lightheadedness and confusion, evaluat e for acute stroke, early onset dementia COMPARISON: Head CT on 09/03/2018 TE CHNIQUE: Sagittal T2; axial DWI, T2, FLAIR, T1-IR, T2 gradient echo; coronal F LAIR. IMAGE QUALITY: Adequate. FINDINGS: Parenchyma: 1. F ew scattered and mildly confluent periventricular white matter hypodensities, most likely nonspecific chronic microvascular ischemic changes. 2. Focal gli osis around the tip of the right occipital horn with volume loss may represent sequela from remote insult such as trauma, infection or ischemia. 3. Tiny ap proximately 2 mm single GRE hypointense foci within the left inferior occipita l subcortical region, may represent tiny calcification or microhemorrhage, per haps sequela from remote trauma or infection versus volume imaging artifact fr om extra-axial calcification. 4. No mass, hemorrhage, or acute infarcts. Skull: Unremarkable. Vessels: Expected flow voids present in the major arteries and dural sinuses. Extra-axial spaces: No abnormal signal intensity or mass effect. Brain volume: Within normal limits for a ge. Ventricles: No hydrocephalus or displacement. Foramen magnum: Unremarkable. Sella: Unremarkable. Paranasal / mastoid sinuses : No significant inflammatory disease. IMPRESSION: 1. No acute infarc ts. 2. Mild nonspecific chronic microvascular ischemic changes. Nery d by: Dr. Cherelle Saravia M.D. on 09/04/2018 12:58 PM Dictated By: CHERELLE Kingsley MD Electronically Signed By: CHERELLE SARAVIA MD on Transcribed By: CAROL on 0 09/04/18 1258 COPY TO: Thyroid Stimulating Hormone (TSH) 2018-09-04 09:25:00* Test Item Value Reference Range Interpretation Comments Thyroid Stimulating Hormone (TSH) (test code = 74885-2) 3.653 0.350-4.940 [facility] CenterThyroid Stimulating Hormone (TSH) 2018-09-04 09:25:00* Test Item Value Reference Range Interpretation Comments Thyroid Stimulating Hormone (TSH) (test code = 25508-2) 3.653 0.350-4.940 [facility]and[facility] Svpag8066-72-89 09:02:00* Test Item Value Reference Range Interpretation Comments Sodium Level (test code = 2951-2) 140 136-145 [facility] CenterPotassium Lhgpr7779-34-25 09:02:00* Test Item Value Reference Range Interpretation Comments Potassium Level (test code = 2823-3) 4.2 3.5-5.1 [facility] CenterChloride Lmgit1541-24-13 09:02:00* Test Item Value Reference Range Interpretation Comments Chloride Level (test code = 2075-0) 107 98-107 [facility] CenterCarbon Dioxide Wlzhe1711-01-84 09:02:00* Test Item Value Reference Range Interpretation Comments Carbon Dioxide Level (test code = 2028-9) 22 22-29 [facility] CenterAnion Zjd4485-90-08 09:02:00* Test Item Value Reference Range Interpretation Comments Anion Gap (test code = 63657-4) 15.2 8-16 [facility] CenterBlood Urea Skpmdwar6925-98-85 09:02:00* Test Item Value Reference Range Interpretation Comments Blood Urea Nitrogen (test code = 3094-0) 12 7-26 [facility] CenterCreatinine2019-02-11 09:02:00* Test Item Value Reference Range Interpretation Comments Creatinine (test code = 2160-0) 1.21 0.72-1.25 [facility] CenterBUN/Creatinine Xodvb3333-57-60 09:02:00* Test Item Value Reference Range Interpretation Comments BUN/Creatinine Ratio (test code = 3097-3) 10 6-25 [facility] CenterEstimat Glomerular Filtration Rate 2018-09-04 09:02:00* Test Item Value Reference Range Interpretation Comments Estimat Glomerular Filtration Rate (test code = 709642598) > 60 >60 Ranges were taken from the National Kidney Disease Education Program and the [facility] Foundation literature.Reference ranges:60 or greater: Twatlh31-96 ( for 3 consecutive months): Chronic kidney disease 15 or less: Kidney failureP[facility] Medical CenterGlucose Lanve3655-66-55 09:02:00* Test Item Value Reference Range Interpretation Comments Glucose Level (test code = GMM2160) 95 74-118 [facility] CenterCalcium Xaypb0605-74-91 09:02:00* Test Item Value Reference Range Interpretation Comments Calcium Level (test code = 61926-8) 8.9 8.4-10.2 [facility] CenterWhite Blood Idqqf7258-56-76 08:50:00* Test Item Value Reference Range Interpretation Comments White Blood Count (test code = 6690-2) 7.34 4.8-10.8 [facility] CenterRed Blood Jwcre1015-28-97 08:50:00* Test Item Value Reference Range Interpretation Comments Red Blood Count (test code = 789-8) 5.09 4.3-5.7 [facility] CenterHemoglobin2019-02-11 08:50:00* Test Item Value Reference Range Interpretation Comments Hemoglobin (test code = 45229-5) 14.2 14.0-18.0 [facility] CenterHematocrit2019-02-11 08:50:00* Test Item Value Reference Range Interpretation Comments Hematocrit (test code = 4544-3) 43.0 38.2-49.6 [facility] CenterMean Corpuscular Rbcyyf0257-72-42 08:50:00* Test Item Value Reference Range Interpretation Comments Mean Corpuscular Volume (test code = 787-2) 84.5 81-99 [facility] CenterMean Corpuscular Svzajkpqlv6859-39-84 08:50:00* Test Item Value Reference Range Interpretation Comments Mean Corpuscular Hemoglobin (test code = 785-6) 27.9 28-32 L [facility] Corpuscular Hemoglobin Concent 2018-09-04 08:50:00* Test Item Value Reference Range Interpretation Comments Mean Corpuscular Hemoglobin Concent (test code = 786-4) 33.0 31-35 [facility] CenterRed Cell Distribution Eolec8968-19-38 08:50:00* Test Item Value Reference Range Interpretation Comments Red Cell Distribution Width (test code = 73585-2) 13.8 11.7 -14.4 [facility] CenterPlatelet Anarh6780-27-76 08:50:00* Test Item Value Reference Range Interpretation Comments Platelet Count (test code = 777-3) 251 140-360 [facility] CenterNeutrophils (%) (Auto)2018-09-04 08:50:00 * Test Item Value Reference Range Interpretation Comments Neutrophils (%) (Auto) (test code = 15157-8) 52.0 38.7-80.0 [facility] CenterLymphocytes (%) (Auto)2018-09-04 08:50:00 * Test Item Value Reference Range Interpretation Comments Lymphocytes (%) (Auto) (test code = 736-9) 31.5 18.0-39.1 [facility] CenterMonocytes (%) (Auto)2018-09-04 08:50:00* Test Item Value Reference Range Interpretation Comments Monocytes (%) (Auto) (test code = 5905-5) 9.8 4.4-11.3 [facility] CenterEosinophils (%) (Auto)2018-09-04 08:50:00 * Test Item Value Reference Range Interpretation Comments Eosinophils (%) (Auto) (test code = 713-8) 5.9 0.0-6.0 [facility] CenterBasophils (%) (Auto)2018-09-04 08:50:00* Test Item Value Reference Range Interpretation Comments Basophils (%) (Auto) (test code = 706-2) 0.7 0.0-1.0 [facility] CenterIM GRANULOCYTES %2018-09-04 08:50:00* Test Item Value Reference Range Interpretation Comments IM GRANULOCYTES % (test code = IM GRANULOCYTES %) 0.1 0.0- 1.0 [facility] CenterNeutrophils # (Auto)2018-09-04 08:50:00* Test Item Value Reference Range Interpretation Comments Neutrophils # (Auto) (test code = 751-8) 3.8 2.1-6.9 [facility] CenterLymphocytes # (Auto)2018-09-04 08:50:00* Test Item Value Reference Range Interpretation Comments Lymphocytes # (Auto) (test code = 25516-9) 2.3 1.0-3.2 [facility] CenterMonocytes # (Auto)2018-09-04 08:50:00* Test Item Value Reference Range Interpretation Comments Monocytes # (Auto) (test code = 742-7) 0.7 0.2-0.8 [facility] CenterEosinophils # (Auto)2018-09-04 08:50:00* Test Item Value Reference Range Interpretation Comments Eosinophils # (Auto) (test code = 711-2) 0.4 0.0-0.4 [facility] CenterBasophils # (Auto)2018-09-04 08:50:00* Test Item Value Reference Range Interpretation Comments Basophils # (Auto) (test code = 704-7) 0.1 0.0-0.1 [facility] CenterAbsolute Immature Granulocyte (auto 2018-09-04 08:50:00* Test Item Value Reference Range Interpretation Comments Absolute Immature Granulocyte (auto (aundrea t code = Absolute Immature Granulocyte (auto) 0.01 0-0.1 [facility] CenterTriglycerides Tocjr6847-82-04 07:48:00* Test Item Value Reference Range Interpretation Comments Triglycerides Level (test code = 2571-8) 102 0-149 [facility] CenterLDL Uydcjnbbqmu5395-72-72 07:48:00* Test Item Value Reference Range Interpretation Comments LDL Cholesterol (test code = 2089-1) 91 60-130 [facility] CenterTriglycerides Xxdpk7942-79-72 07:48:00* Test Item Value Reference Range Interpretation Comments Triglycerides Level (test code = 2571-8) 102 0-149 [facility] CenterLDL Zwifsydaxur6826-50-30 07:48:00* Test Item Value Reference Range Interpretation Comments LDL Cholesterol (test code = 2089-1) 91 60-130 [facility] CenterCholesterol Eumlt2938-25-44 07:14:00* Test Item Value Reference Range Interpretation Comments Cholesterol Level (test code = 2093-3) 150 0-199 Less than 200 mg/dL Low Exsb233 - 239 mg/dL Borderline Szta916 m g/dl and greater High Risk [facility] Nmdunuaijzy9242-67-09 07:14:00* Test Item Value Reference Range Interpretation Comments HDL Cholesterol (test code = 2085-9) 39 40-60 L [facility] CenterCholesterol/HDL Kbqsv6668-36-73 07:14:00 * Test Item Value Reference Range Interpretation Comments Cholesterol/HDL Ratio (test code = 9830-1) 3.8 3.9-4.7 L [facility] CenterCholesterol Mvyxf3454-02-94 07:14:00* Test Item Value Reference Range Interpretation Comments Cholesterol Level (test code = 2093-3) 150 0-199 Less than 200 mg/dL Low Hatn807 - 239 mg/dL Borderline Rhom977 m g/dl and greater High Risk [facility] Jfxhdrvogve5791-13-53 07:14:00* Test Item Value Reference Range Interpretation Comments HDL Cholesterol (test code = 2085-9) 39 40-60 L [facility] CenterCholesterol/HDL Wuvzp6004-61-13 07:14:00 * Test Item Value Reference Range Interpretation Comments Cholesterol/HDL Ratio (test code = 9830-1) 3.8 3.9-4.7 L [facility] CenterErythrocyte Sedimentation Gvkr8160-11-78 06:04:00* Test Item Value Reference Range Interpretation Comments Erythrocyte Sedimentation Rate (test code = 4537-7) 4 0- 13 [facility] CenterErythrocyte Sedimentation Tgxc6010-06-41 06:04:00* Test Item Value Reference Range Interpretation Comments Erythrocyte Sedimentation Rate (test code = 4537-7) 4 0- 13 [facility] CenterCXR 2 VIEW - XFHS4171-36-48 22:36:00 [place] [address] Patient Name: MONIKA MORGAN V MR #: [id number] : 1980 Age/Sex: 38/M Req #: [id number] Adm Physician: SERGIO LOMBARDO MD Ordered by: MADONNA RODRIGUEZ MD Report #: [id number] Location: [facility] Room/Bed: [place] [address] Procedure: [id number] HOPD /CXR 2 VIEW - HOPD Exam Date: 09/03/18 Exam Time: 22 15 REPORT STATUS: Signed CXR 2 V IEW - HOPD, Technique: CXR 2 VIEW - HOPD Comparison: None available Clinical history: Chest pain DISCUSSION: Unremarkable appearance of the heart, mediastinum, lungs and pleural spaces. IMPRESSION: No acute abno rmality Signed by: Dr Eleanor Raya MD on 09/03/2018 10:37 PM Dictat ed By: ELEANOR RAYA MD 36 COPY TO: MADONNA RODRIGUEZ MD CT BRAIN WF-TPMD8797-49-10 21:33:00 [place] [address] Patient Name: MONIKA MORGAN V MR #: [id number] : 1980 Age/Sex: 38/M Req #: [id number] Adm Physician: Ordered by: MADONNA RODRIGUEZ MD Report #: [id number] Location: [facility] Room/Bed: Procedure: [id number] HOPD/C T BRAIN WO-HOPD Exam Date: 09/03/18 Exam Time: 2026 REPORT STATUS: Signed EXAMINATIO N: Head CT without contrast. HISTORY:Headache. COMPARISON:None. TECHNIQUE: Multidetector axial images were obtained from the foramen magnum to the vertex without contrast. The images were reconstructed using brain and bone algorithms. Thin section brain images were reformatted into coronal and s agittal planes. Dose modulation, iterative reconstruction, and/or weight based adjustment of the mA/kV was utilized to reduce the radiation dose to as low as reasonably achievable. Intravenous contrast: None IMAGE QUALITY: Acceptable. FINDINGS: Skull/scalp: No lytic or blastic. lesions. No surgical changes. Parenchyma: No abnormal density. No acute hemorrhage, mass or acute major vascular territorial infarct. Arteries: No density villeda ggestive of thrombosis. Dural sinuses: No abnormal density suggestive o f thrombosis. Ventricles: No hydrocephalus or displacement. Extra-a xial spaces: No abnormal density. Brain volume: Normal for age. Cr aniocervical junction: No mass, Chiari malformation, or basilar invagination. Sella: No mass. Paranasal/mastoid sinuses: Small polyp/retention cy st in left maxillary sinus is partially visualized. IMPRESSION: No i ntracranial abnormality. Signed by: Dr. Cierra Everett M.D. on 09/03/2018 9:36 PM Dictated By: CIERRA EVERETT MD 35 Transcribed By: CAROL on 09/03/182135 CO PY TO: MADONNA RODRIGUEZ MD CT CHEST W [place] [address] Patient Name: MONIKA MORGAN MR #: [id number] : 1980 Age/Sex: 37/M Req #: [id number] Adm Physician: SERGIO LOMBARDO MD Ordered by: KIMBER HUGHES MD Report #: [id number] Location: ICU Room/Bed: ICU 194 Procedure: [id number] CT/CT CHEST W Exam Date: Exam Time: REPORT STATUS: Signed EXAM: CT CHEST W DATE: 03/26/2017 8:17 PM INDICATION: Shortness of breath COMPARISON: None TECHNIQUE: Multidetector CT scanning of the [facility] was performed. Coronal and sagittal multiplanar reformations were obtained . IV Contrast: 100 mL of Isovue-370 FINDINGS: LUNGS AND PLEURA: Patent central airways. There are mild bibasilar opacities, likely atelectasi s. No effusions or pneumothorax. HEART, MEDIASTINUM, VESSELS: Normal heart size without pericardial effusion. Suboptimal contrast attenuation of the pulm onary arterial system. Otherwise no evidence of acute embolism through the dis omar lobar level. Main pulmonary artery is normal in size, 2.4 cm. There is no adenopathy. UPPER ABDOMEN: No acute abnormality. MUSCULOSKELETAL: No a cute findings. IMPRESSION: 1. Suboptimal contrast bolus. Otherwise no def inite acute pulmonary embolism through the distal lobar level. 2. Mild bibas ilar atelectasis. Signed by: Dr Eleanor Raya MD on 03/26/2017 9:22 PM Dictated By: ELEANOR RAYA MD 21 Transcribed By: CAROL on 03/26/172121 COPY TO: KIMBER LÓPEZ MD CHEST 2 VIEWS [place] [address] Patient Name: MONIKA MORGAN MR #: [id number] : 1980 Age/Sex: 37/M Req #: [id number] Adm Physician: Ordered by: KIMBER HUGHES MD Report #: [id number] Location: Room/Bed: Procedure: [id number] DX/CHEST 2 VIEWS Exam Date: 09/10 Exam Time: 1432 REPORT STATUS: Signed EXAMINATION: CHEST 2 VIEWS INDICATION: COMPARISON: None FINDINGS: PA and lateral views TUBES and LINES: None. LUNGS: Lungs are well inflated. Diffuse bilateral hilar peribronchial wall thickening no lobar consolidations. PLEURA: No pleural effusion or pne umothorax. HEART AND MEDIASTINUM: The cardiomediastinal silhouette is unre markable. BONES AND SOFT TISSUES: No acute osseous lesion. Soft tissu es are unremarkable. UPPER ABDOMEN: No free air under the diaphragm. IMPRESSION: Diffuse bilateral hilar peribronchial wall thickening may re present reactive airway disease or atypical infection. Recommend repeat chest radiograph in 4-6 weeks. Signed by: Dr. Marleen Avendaño M.D. on 03/26 2:57 PM Dictated By: MARLEEN AVENDAÑO MD Electronically Sig jessica By: MARLEEN AVENDAÑO MD on 03/26/17 0512 Transcribed By: CAROL on 03/26/17 0241 COPY TO: KIMBER HUGHES MD
[2019-12-26] MEDS ORDERED: ONDANSETRON HCL INJ 2MG/ML 2ML 2 MG/ML VIAL IV STA ×2 (20:25→23:17)
[2019-12-26] MEDS ORDERED: KETOROLAC TROMETHAMINE 30 MG/ML VIAL IV STA (20:25)
[2019-12-26] MEDS ORDERED: SODIUM CHLORIDE 0.9% 1000ML 1,000 ML IV SCH ×2 (20:30→23:00)
[2019-12-26] MEDS ORDERED: SODIUM CHLORIDE 0.9% 1000ML 1,000 ML ONE ×2 (20:44→22:41)
[2019-12-26] MEDS ORDERED: KETOROLAC TROMETHAMINE 30 MG/ML VIAL ONE (20:44)
[2019-12-26] MEDS ORDERED: ONDANSETRON HCL INJ 2MG/ML 2ML 2 MG/ML VIAL ONE ×2 (20:44→23:21)
--- NOTE | 2019-12-26 22:20 | Diagnostic Imaging Report ---
CT chest without enhancement CPT code: 18322 INDICATION: Chest pain, shortness of breath, cough TECHNIQUE: Thin collimation axial images obtained from the thoracic inlet to the level of the diaphragm without intravenous contrast. Dose reduction techniques used: Automated exposure control, adjustment of the mAs and/or kVp according to patient size, standardized low-dose protocol, and/or iterative reconstruction technique. RADIATION DOSE: Total DLP: 962.65 mGy*cm Estimated effective dose: (DLP x 0.015 x size factor) mSv CTDIvol has been reviewed. It is below the limits set by the Radiation Protocol Committee (RPC). COMPARISON: Chest x-ray 10/20/2018. Report of CT of the chest performed 03/26/2017. Images are not available for comparison. CHEST FINDINGS: Lymph nodes: No enlarged axillary, supra clavicle, mediastinal, or hilar lymph nodes. Thyroid: Low attenuating nodule in the left lobe measures 2.3 x 2.1 x 2.1 cm. Mediastinum: The heart is normal in size. No pericardial effusion. Small hiatal hernia. Lungs: Right: No evidence of nodule or infiltrate. Left: No evidence of nodule or infiltrate. Airways: Mild bronchial wall thickening, particularly in the posterior segment of the right upper lobe. No filling defects. Pleura: No pleural effusion or pleural-based mass.. ABDOMEN FINDINGS: Visualized portions of the gallbladder, spleen, pancreas, and adrenal glands are normal. A low attenuating lesion in the lower pole of the left kidney measures 11 mm and is too small to characterize. Mildly decreased hepatic attenuation is suggestive of steatosis. Bones: Unremarkable for age. IMPRESSION: 1. Mild bronchial wall thickening suggestive of bronchitis. No infiltrates. 2. Nodule in the left thyroid lobe should be further characterized with ultrasound on an outpatient basis. 3. Mild steatosis. 4. Potential cyst in the left kidney. This can be confirmed with renal ultrasound, also on an outpatient basis. Signed by: Dr. Nicki Almanza MD on 12/26/2019 10:17 PM
--- NOTE | 2019-12-26 22:53 | NUR ---
REPORT TO BALJEET LUONG
[2019-12-26] MEDS ORDERED: CEFTRIAXONE SOD 1 GM/NS 50 ML 50 ML IV ONE (23:00)
[2019-12-26] MEDS ORDERED: HYDROCODONE/APAP 5MG-325MG TAB PO ONE (23:00)
[2019-12-26] MEDS ORDERED: CEFTRIAXONE SOD 1 GM VIAL ONE (23:16)
[2019-12-26] MEDS ORDERED: HYDROCODONE/APAP 5MG-325MG TAB ONE (23:17)
--- NOTE | 2019-12-26 23:17 | Emergency Department Note ---
History of Present Illnes History of Present Illness Chief Complaint: General Medicine Complaints History of Present Illness This is a 39 year old Other male with a history of seasonal allergies and asthma, who presents with a 4 day history of SOB, diarrhea, lower abdominal cramping and a frontal headache that started today. Pt states that he was prescribed Augmentin x 10 days by his PCP for "swelling of the glands in his neck." He completed these antibiotics on 12/23/2019, and the diarrhea started the following day. He is having 4-5 episodes/day, without blood or mucous, no fever, chills or vomiting. He has been nauseated. He has also head some "tightnesss in his chest," similar to what he has experienced with his asthma. He is using his inhaler 1-2x/day, prn. He denies any known sick contacts. 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 He had a negative Covid test 6 days ago. Historian: Patient Arrival Mode: Car Photography Teacher Required: No Onset (how long ago): day(s) (4) Location: see HPI Quality: see HPI Radiation: non-radiation Severity: moderate Onset quality: gradual Duration (how long): day(s) (4) Timing of current episode: constant Progression: worsening (just not feeling well and having ongoing diarrhea) Chronicity: new Relieving factors: none Exacerbating factors: none Associated symptoms: cough (dry cough started today), headaches (headache st arted today, without neck pain or stiffness), loss of appetite, malaise, shortness of breath Treatments prior to arrival: other (Acetaminophen 1000 mg, 2 hours ago.) Risk factors: nurse in the hospital Past Medical/Family History Physician Review I have reviewed the patient's past medical and family history. Any updates have been documented here. Past Medical History Recent Fever: No Clinical Suspicion of Infectio: No New/Unexplained Change in Ment: No Past Medical History: Hypertension, Asthma, Migraines Other Medical History: CHRONIC SINUSITIS SEASONAL ALLERGIES Past Surgical History: None Other Surgery: SEPTUM SURGERY Social History Smoking Cessation: Never Smoker Counseling Performed: No Alcohol Use: None Any Illegal Drug Use: No TB Exposure/Symptoms: No Physically hurt or threatened: No Other Last Tetanus: UTD Any Pre-Existing Lines (PICC,: No Is patient up to date on immun: Yes Last Flu: YES Last Pneumovax: NO Review of Systems Review of Systems Constitutional: malaise EENTM: no symptoms Cardiovascular: no symptoms Respiratory: cough (dry x 1 day, "feels like his asthma.") Gastrointestinal: abdominal pain (mild lower abdominal cramping), diarrhea, nausea Genitourinary: no symptoms Musculoskeletal: no symptoms Neurological: no symptoms Psychological: no symptoms Review of other systems All other systems reviewed and negative. Physical Exam Related Data Allergies: Coded Allergies: Egg Derived (Verified Allergy, Severe, 05/12/19) codeine (Verified Allergy, Severe, THROAT SPASM, 03/26/17) shellfish derived (Verified Allergy, Severe, ANAPHYLAXIS, 09/04/18) iodine (Verified Allergy, Intermediate, ITCHING WITH TOPICAL IODINE, 09/04/18) Penicillins (Verified Allergy, Unknown, ANAPHYLAXIS THROAT SWELLING , HARD TO BREATH, 10/20/18) Pork/Porcine Containing Products (Verified Allergy, Unknown, 03/27/17) against muslim kiwi (Verified Allergy, Unknown, ITCHING,SWELLING,HIVES, 10/20/18) Triage Vital Signs Vital Signs Date Time Temp Pulse Resp B/P (MAP) Pulse Ox O2 Delivery O2 Flow Rate FiO2 12/26/19 20:03 98.1 82 19 144/96 99 Vital signs reviewed: Yes Physical Exam CONSTITUTIONAL Constitutional: well-developed, well-nourished, other (appears not to feel well) HENT HENT: normocephalic, atraumatic, oropharynx clear/moist, nose normal HENT L/R: left ext ear normal, right ext ear normal EYES Eyes: PERRL, conjunctivae normal NECK Neck: ROM normal, supple, other PULMONARY Pulmonary: effort normal, breath sounds normal CARDIOVASCULAR Cardiovascular: regular rhythm, heart sounds normal, capillary refill normal, normal rate GASTROINTESTINAL Abdominal: soft, nontender, tender (mild lower abdominal ttp), other (hyperactive BS) GENITOURINARY Genitourinary: exam deferred SKIN Skin: warm, dry MUSCULOSKELETAL Musculoskeletal: ROM normal NEUROLOGICAL Neurological: alert, oriented x 3 PSYCHOLOGICAL Psychological: mood/affect normal Results Laboratory Lab results reviewed: Yes Laboratory comments UA - negative CBC - nl CMP - nl BNP - nl Cardiacs - nl except for Myoglobin of 269 D-dimer - not elevated Imaging Imaging results reviewed: Yes [facility] [address] Patient Name: MONIKA ALMANZA V MR #: [id number] : 1980 Age/Sex: 39/M Req #: [id number] Adm Physician: Ordered by: PRINCESS BALLESTEROS MD Report #: [id number] Location: [facility] Room/Bed: Procedure: [id number] HOPD/CT CHEST W/O CONTRAST-HOPD Exam Date: 12/26/19 Exam Time: 2110 REPORT STATUS: Signed CT chest without enhancement CPT code: 12073 INDICATION: Chest pain, shortness of breath, cough TECHNIQUE: Thin collimation axial images obtained from the thoracic inlet to the level of the diaphragm without intravenous contrast. Dose reduction techniques used: Automated exposure control, adjustment of the mAs and/or kVp according to patient size, standardized low-dose protocol, and/or iterative reconstruction technique. RADIATION DOSE: Total DLP: 962.65 mGy*cm Estimated effective dose: (DLP x 0.015 x size factor) mSv CTDIvol has been reviewed. It is below the limits set by the Radiation Protocol Committee (RPC). COMPARISON: Chest x-ray 10/20/2018. Report of CT of the chest performed 03/26/2017. Images are not available for comparison. CHEST FINDINGS: Lymph nodes: No enlarged axillary, supra clavicle, mediastinal, or hilar lymph nodes. Thyroid: Low attenuating nodule in the left lobe measures 2.3 x 2.1 x 2.1 cm. Mediastinum: The heart is normal in size. No pericardial effusion. Small hiatal hernia. Lungs: Right: No evidence of nodule or infiltrate. Left: No evidence of nodule or infiltrate. Airways: Mild bronchial wall thickening, particularly in the posterior segment of the right upper lobe. No filling defects. Pleura: No pleural effusion or pleural-based mass.. ABDOMEN FINDINGS: Visualized portions of the gallbladder, spleen, pancreas, and adrenal glands are normal. A low attenuating lesion in the lower pole of the left kidney measures 11 mm and is too small to characterize. Mildly decreased hepatic attenuation is suggestive of steatosis. Bones: Unremarkable for age. IMPRESSION: 1. Mild bronchial wall thickening suggestive of bronchitis. No infiltrates. 2. Nodule in the left thyroid lobe should be further characterized with ultrasound on an outpatient basis. 3. Mild steatosis. 4. Potential cyst in the left kidney. This can be confirmed with renal ultrasound, also on an outpatient basis. Signed by: Dr. Barb Almanza MD on 12/26/2019 10:17 PM Dictated By: BARB ALMANZA MD 16 Transcribed By: CAROL on 12/26/192216 COPY TO: PRINCESS BALLESTEROS MD~ Diagnostics Tests Diagnostic test(s) reviewed: Yes Procedures 12 Lead ECG Interpretation Photography Teacher: Interpreted by ED physician Date: Dec 26, 2019 Time: 20:16 Prior RN INVASIVE tracings: not available for review Rhythm: sinus rhythm Rate: normal BPM: 63 QRS axis: normal ST segments normal: Yes T waves normal: Yes Clinical Impression: normal ECG Critical Care Time Subsequent provider I assumed direction of critical care for this patient from another provider of my specialty. Assessment & Plan Assessment & Plan Final Impression: (1) ACUTE BRONCHITIS, UNSPECIFIED (2) VIRAL INFECTION, UNSPECIFIED (3) CONGENITAL RENAL CYST, UNSPECIFIED (4) DIARRHEA, UNSPECIFIED (5) Chest pain (6) Headache (7) NONTOXIC SINGLE THYROID NODULE Assessment & Plan - Reviewed results of diagnostic evaluation with patient and spouse. Pt feels MUCH better, following the IVF. MANCIA improved after Toradol, and resolved after [place]. - Pt to follow instructions below, and will f/u with Dr. Boyd tomorrow. Explained to patient that the diarrhea may be a result of his recent course of Augmentin x 10 days, which he finished one day before the diarrhea started. If it does not respond to dietary changes and Imodium, explained that stool studies might be needed. Also discussed that most cases of bronchitis are caused by "viruses," and that since he has no fever, no sputum production and cough just started, will defer antibiotics at this time, which can worsen the diarrhea. Pt did receive one dose of Ceftriaxone here in the ED, empirically. His SOB may be due to his asthma not being well controlled and the need for more frequent inhaler use. Pt voiced under standing of the plan and was very appreciative of the care. Rest and drink PLENTY of fluids, avoiding any juices or fluids containing a high content of sugar, as this can worsen diarrhes. Recommend applesauce, toast, steamed rice, and bananas, to help thicken the stool You may take IMODIUM AD, per package instructions, as needed, for diarrhea. *Recommend that you take a course of a Probiotic, such as ALIGN, to help restore normal, good gut omar. Use your Albuterol inhaler every 4-6 hours, as needed, for dry cough. Follow-up with Dr. Boyd tomorrow, as discussed regarding your current symptoms and for further evaluation of a possible thyroid nodule and possible cyst on the left kidney Depart Disposition: HOME, SELF-CARE Last Vital Signs Date Time Temp Pulse Resp B/P (MAP) Pulse Ox O2 Delivery O2 Flow Rate FiO2 12/26/19 22:18 67 17 125/78 100 12/26/19 20:03 98.1 Home Meds Active Scripts Butalb/Acetaminophen/Caffeine (Fioricet 50-300-40 mg Capsule) 1 Each Capsule, 1- 2 TAB PO Q6H for headache, #20 TAB 0 Refills Prov:PRINCESS BALLESTEROS MD 12/27/19 Ondansetron (ONDANSETRON ODT) 8 Mg Tab.rapdis, 4 MG PO Q6H for nausea or vomiting, #20 TAB 0 Refills Prov:PRINCESS BALLESTEROS MD 12/27/19 Prednisone (PREDNISONE) 20 Mg Tab, 20 MG PO DAILY for 5 Days, #5 TAB Prov:REVA MATHEWS MD 09/10/19 Ondansetron Hcl* (ZOFRAN*) 4 Mg Tablet, 4 MG SL Q6H PRN for NAUSEA, #14 MG 0 Refills Prov:REVA MATHEWS MD 09/10/19 Azithromycin (Z-ESAU) 250 Mg Tablet, 250 MG PO UD for 5 Days, #1 UDPKT Z-Pack Prov:REVA MATHEWS MD 09/10/19 Oseltamivir Phosphate (TAMIFLU) 75 Mg Cap, 75 MG PO BID for 5 Days, #10 CAP Prov:REVA MATHEWS MD 09/10/19 Reported Medications Multivitamin (MULTI-VITAMIN DAILY) 1 Each Tablet, 1 TAB PO DAILY 10/20/18 Budesonide/Formoterol Fumarate (SYMBICORT 160-4.5 MCG INHALER) 10.2 Gm Hfa.aer.ad, 2 INH INH TID 10/20/18 Cetirizine Hcl (CETIRIZINE HCL) 5 Mg Tablet, 5 MG PO PRN PRN for ALLERGY 10/20/18 Sumatriptan Succinate (SUMATRIPTAN SUCCINATE) 25 Mg Tablet, 50 MG PO DAILY PRN for MIGRAINE, #30 TAB 09/04/18 [Duoneb] No Conflict Check, INH NEB PRN 03/26/17 Medications in the ED Sodium Chloride 1,000 ml @ 0 mls/hr Q0M IV Last administered on 12/26/19at 20:44; Admin Dose 1,000 MLS/HR; Start 12/26/19 at 20:30; Stop 01/25/20 at 20:29 Ondansetron HCl 4 mg NOW STAT IV Last administered on 12/26/19at 20:44; Admin Dose 4 MG; Start 12/26/19 at 20:25; Stop 12/26/19 at 20:39; Status DC Ketorolac Tromethamine 30 mg ONCE STAT IV Last administered on 12/26/19at 20:44; Admin Dose 30 MG; Start 12/26/19 at 20:25; Stop 12/26/19 at 20:40; Status DC Ondansetron HCl 4 mg STK-MED ONCE .ROUTE ; Start 12/26/19 at 20:44; Stop 12/26/19 at 20:42; Status DC Ketorolac Tromethamine 30 mg STK-MED ONCE .ROUTE ; Start 12/26/19 at 20:44; Stop 12/26/19 at 20:42; Status DC Sodium Chloride 1,000 ml @ ud STK-MED ONCE .ROUTE ; Start 12/26/19 at 20:44; Stop 12/26/19 at 20:42; Status DC Sodium Chloride 1,000 ml @ ud STK-MED ONCE .ROUTE ; Start 12/26/19 at 22:41; Stop 12/26/19 at 22:38; Status DC Sodium Chloride 1,000 ml @ 0 mls/hr Q0M IV ; Start 12/26/19 at 23:00; Stop 01/25/20 at 22:59; Status UNV Ceftriaxone Sodium 50 ml @ 100 mls/hr ONCE ONCE IV ; Start 12/26/19 at 23:00; Stop 12/26/19 at 23:29; Status UNV Acetaminophen/ Hydrocodone Bitart 2 ea ONCE ONCE PO ; Start 12/26/19 at 23:00; Stop 12/26/19 at 23:01; Status UNV PRINCESS BALLESTEROS MD Dec 26, 2019 23:17
[2019-12-27] MEDS ORDERED: ONDANSETRON ODT8 MG PO (00:06)
[2019-12-27] MEDS ORDERED: FIORICET 50-301 EACH PO (00:10)
== END 2019-12-27 00:27 | disposition home or self-care (01) ==
LOC: FSED 19:57 → MERGE 19:57 → FSED 12-27 00:27
DX: R06.02 Shortness of breath (principal); R07.89 Other chest pain; J20.9 Acute bronchitis, unspecified; B34.9 Viral infection, unspecified; R51 Headache; R19.7 Diarrhea, unspecified; N28.1 Cyst of kidney, acquired; E04.1 Nontoxic single thyroid nodule; I10 Essential (primary) hypertension
CPT/HCPCS: 71250; 80053; 81003; 82553; 83880; 84484; 85025; 85379; 99284; J0696; J1885; J2405; J7030; 93005

== ENCOUNTER 2020-07-09 19:44 | Observation (INO) | payer BC ==
[~2020-07-09] VITALS: Ht 170.2 cm; Wt 89.5 kg
[~2020-07-09 19:44] MED LIST changes: +FIORICET 50-301 EACH PO; +ONDANSETRON ODT8 MG PO
[2020-07-09 20:58] VITALS: BP 137/90
[2020-07-09 21:00] VITALS: BP 137/90
[2020-07-09] MEDS ORDERED: SODIUM CHLORIDE FLUSH 10 ML SYR INJ PRN (22:15)
[2020-07-09] MEDS ORDERED: ASPIRIN 81 MG CHEW TAB PO ONE (22:30)
[2020-07-09] MEDS ORDERED: LEVALBUTEROL HCL SOLN NEBU 0.63 MG/3 ML NEB INH PRN (22:30)
[2020-07-09] MEDS ORDERED: ACETAMINOPHEN 325 MG TAB PO PRN (22:30)
[2020-07-09] MEDS ORDERED: ONDANSETRON HCL INJ 2MG/ML 2ML 2 MG/ML VIAL IV PRN (22:30)
[2020-07-09] MEDS ORDERED: PROPRANOLOL HCL 40 MG TAB PO PRN (23:00)
[2020-07-09] MEDS: LEVALBUTEROL HCL SOLN NEBU 0.63 MG/3 ML NEB HHN PRN (23:40)
[2020-07-10] VITALS (7 sets, daily range): BP systolic 116–150; BP diastolic 74–89
[2020-07-10 00:06] LABS: BASOPHILS % 0.2 % (0.0-1.0); EOSINOPHILS # (AUTO) 0.1 (0.0-0.4); EOSINOPHILS % 0.3 % (0.0-6.0); HEMATOCRIT 44.5 % (38.2-49.6); HEMOGLOBIN 15.4 g/dL (14.0-18.0); LYMPHOCYTES # (AUTO) 2.1 (1.0-3.2); LYMPHOCYTES % 12.9 % (18.0-39.1); MEAN CORPUSCULAR HEMOGLOBIN 28.7 pg (28-32); MEAN CORPUSCULAR HGB CONC 34.6 g/dL (31-35); MEAN CORPUSCULAR VOLUME 82.9 fL (81-99); MONOCYTES # (AUTO) 1.7 (0.2-0.8); MONOCYTES % 10.4 % (4.4-11.3); NEUTROPHILS # (AUTO) 12.4 (2.1-6.9); NEUTROPHILS % 75.3 % (38.7-80.0); PLATELET COUNT 323 x10e3/uL (140-360); RED BLOOD COUNT 5.37 x10e6/uL (4.3-5.7); RED CELL DISTRIBUTION WIDTH 13.4 % (11.7-14.4)
[2020-07-10] MEDS ORDERED: MONTELUKAST SODIUM 10 MG TAB PO STA (00:12)
[2020-07-10 00:21] LABS: ALANINE AMINOTRANSFERASE 87 IU/L (0-55); ALBUMIN 3.9 g/dL (3.5-5.0); ALBUMIN/GLOBULIN RATIO 1.1 (0.8-2.0); ALKALINE PHOSPHATASE 77 IU/L (40-150); ANION GAP 15.1 mmol/L (8-16); BLOOD UREA NITROGEN 22 mg/dL (7-26); BUN/CREATININE RATIO 33 (6-25); CALCIUM 9.4 mg/dL (8.4-10.2); CARBON DIOXIDE 24 mmol/L (22-29); CHLORIDE 105 mmol/L (98-107); CREATININE, SERUM 0.66 mg/dL (0.72-1.25); EST GLOMERULAR FILTRATION RATE > 60 ML/MIN (60-); GLUCOSE 134 mg/dL (74-118); POTASSIUM 4.1 mmol/L (3.5-5.1); SODIUM 140 mmol/L (136-145)
[2020-07-10 00:37] LABS: CREATINE KINASE 54 IU/L (30-200)
[2020-07-10 00:51] LABS: THYROID STIMULATING HORMONE 1.01 uIU/mL (0.350-4.940)
[2020-07-10] MEDS ORDERED: PREDNISONE 20 MG TAB PO ONE ×3 (02:15→14:00)
[2020-07-10] MEDS: LEVALBUTEROL HCL SOLN NEBU 0.63 MG/3 ML NEB HHN PRN (07:29)
[2020-07-10] MEDS: LEVOFLOXACIN 500MG/D5W 100ML 100 ML IV SCH (07:37)
[2020-07-10] MEDS: PANTOPRAZOLE 40 MG 10ML VIAL IV SCH (07:37)
[2020-07-10] MEDS ORDERED: PREDNISONE50 MG PO (07:50)
[2020-07-10] MEDS ORDERED: MONTELUKAST SOD10 MG PO (07:50)
[2020-07-10] MEDS ORDERED: PROPRANOLOL HCL40 MG PO (07:50)
[2020-07-10] MEDS ORDERED: ATROVENT HFA12.9 GM INH (07:50)
[2020-07-10] MEDS ORDERED: SODIUM CHLORIDE 0.9% 250ML 250 ML ONE (07:51)
[2020-07-10 08:33] LABS: CREATINE KINASE 41 IU/L (30-200)
[2020-07-10] MEDS: AZITHROMYCIN 250 MG TAB PO SCH (08:58)
[2020-07-10] MEDS: ASPIRIN 325 MG TAB PO SCH (08:58)
[2020-07-10] MEDS ORDERED: LOSARTAN POTASSIUM 100 MG TAB PO SCH (09:00)
[2020-07-10] MEDS ORDERED: DIPHENHYDRAMINE HCL 25 MG CAP PO ONE (14:00)
[2020-07-10] MEDS ORDERED: SODIUM CHLORIDE 0.9% 100 ML ONE (14:41)
[2020-07-10] MEDS ORDERED: IOPAMIDOL 370 MG/ML 200 ML INFUS..BTL INJ ONE (14:42)
[2020-07-10 16:01] LABS: CREATINE KINASE 41 IU/L (30-200)
[2020-07-10] MEDS ORDERED: MONTELUKAST SODIUM 10 MG TAB PO SCH (21:00)
[2020-07-10] MEDS: LOSARTAN POTASSIUM 100 MG TAB PO SCH (21:02)
[2020-07-10] MEDS: IPRATROPIUM BROMIDE INHALER 12.9 GM INH INH SCH (21:30)
[2020-07-11] VITALS: BP 125/69
[2020-07-11 04:00] VITALS: BP 119/86
[2020-07-11 05:55] LABS: BASOPHILS % 0.2 % (0.0-1.0); EOSINOPHILS # (AUTO) 0.1 (0.0-0.4); EOSINOPHILS % 0.6 % (0.0-6.0); HEMATOCRIT 43.5 % (38.2-49.6); HEMOGLOBIN 14.3 g/dL (14.0-18.0); LYMPHOCYTES % 9.5 % (18.0-39.1); MEAN CORPUSCULAR HEMOGLOBIN 27.6 pg (28-32); MEAN CORPUSCULAR HGB CONC 32.9 g/dL (31-35); MONOCYTES # (AUTO) 2.6 (0.2-0.8); MONOCYTES % 12.7 % (4.4-11.3); NEUTROPHILS # (AUTO) 15.6 (2.1-6.9); NEUTROPHILS % 75.4 % (38.7-80.0); PLATELET COUNT 323 x10e3/uL (140-360); RED BLOOD COUNT 5.18 x10e6/uL (4.3-5.7); RED CELL DISTRIBUTION WIDTH 13.6 % (11.7-14.4)
[2020-07-11 06:25] LABS: ALANINE AMINOTRANSFERASE 72 IU/L (0-55); ALBUMIN 3.5 g/dL (3.5-5.0); ALBUMIN/GLOBULIN RATIO 1.1 (0.8-2.0); ALKALINE PHOSPHATASE 75 IU/L (40-150); ANION GAP 12.1 mmol/L (8-16); BLOOD UREA NITROGEN 24 mg/dL (7-26); BUN/CREATININE RATIO 21 (6-25); CALCIUM 8.8 mg/dL (8.4-10.2); CARBON DIOXIDE 26 mmol/L (22-29); CHLORIDE 106 mmol/L (98-107); EST GLOMERULAR FILTRATION RATE > 60 ML/MIN (60-); GLUCOSE 111 mg/dL (74-118); POTASSIUM 4.1 mmol/L (3.5-5.1); SODIUM 140 mmol/L (136-145)
[2020-07-11 06:32] LABS: CREATININE, SERUM 1.12 mg/dL (0.72-1.25)
[2020-07-11] MEDS: IPRATROPIUM BROMIDE INHALER 12.9 GM INH INH SCH ×2 (07:50→11:26)
[2020-07-11] MEDS: LEVALBUTEROL HCL SOLN NEBU 0.63 MG/3 ML NEB HHN PRN (07:55)
[2020-07-11 08:35] VITALS: BP 122/86
[2020-07-11 08:38] VITALS: BP 122/86
[2020-07-11] MEDS: ASPIRIN 325 MG TAB PO SCH (08:41)
[2020-07-11] MEDS: LEVOFLOXACIN 500MG/D5W 100ML 100 ML IV SCH (08:41)
[2020-07-11] MEDS: PANTOPRAZOLE 40 MG 10ML VIAL IV SCH (08:41)
[2020-07-11] MEDS: AZITHROMYCIN 250 MG TAB PO SCH (08:42)
[2020-07-11] MEDS: LOSARTAN POTASSIUM 100 MG TAB PO SCH (08:44)
[2020-07-11 09:15] LABS: LYMPHOCYTES % (MANUAL) 8 % (19-48); MONOCYTES % (MANUAL) 10 % (3.4-9.0); NEUTROPHILS % (MANUAL) 79 % (40-74); PLATELET ESTIMATE ADEQUATE; PLATELET MORPHOLOGY COMMENT NORMAL; RBC MORPHOLOGY COMMENT NORMAL
== END 2020-07-11 12:41 | disposition home or self-care (01) ==
LOC: MED/SURG 20:52
PROVIDERS: ADMIT Family Medicine; ATTEND Family Medicine
DX: J18.9 Pneumonia, unspecified organism (principal); E78.5 Hyperlipidemia, unspecified; I10 Essential (primary) hypertension; Z20.828 Contact with and (suspected) exposure to other viral communicable diseases; R09.02 Hypoxemia
CPT/HCPCS: 36415 ×2; 71045; 71260; 80053 ×2; 82550; 82553; 83880; 84436; 84443; 84484; 85025 ×2; 87070; 87205; 87400; 93005; 93306; 94640 ×3; C9113 ×2; G0378 ×3; J1956 ×2; J7050 ×2; J7512; Q9967; U0002

== ENCOUNTER 2020-07-19 13:19 | Emergency (ER) | payer BC ==
[~2020-07-19] VITALS: Ht 170.2 cm; Wt 87.1 kg
[~2020-07-19 13:19] MED LIST changes: +ATROVENT HFA12.9 GM INH; +MONTELUKAST SOD10 MG PO; +PREDNISONE50 MG PO; +PROPRANOLOL HCL40 MG PO
[2020-07-19] MEDS ORDERED: SODIUM CHLORIDE 0.9% 1000ML 1,000 ML IV STA ×3 (13:36→15:05)
[2020-07-19] MEDS ORDERED: AZITHROMYCIN 500MG/NS 250 ML 250 ML IV STA (13:36)
[2020-07-19] MEDS ORDERED: AZITHROMYCIN 500MG/NS 250 ML 250 ML ONE (13:52)
[2020-07-19] MEDS ORDERED: SODIUM CHLORIDE 0.9% 1000ML 1,000 ML ONE (13:52)
[2020-07-19] MEDS ORDERED: LOSARTAN POTASS25 MG (14:05)
[2020-07-19] MEDS ORDERED: ACETAMINOPHEN 325 MG TAB PO NR (14:15)
[2020-07-19] MEDS ORDERED: ONDANSETRON HCL INJ 2MG/ML 2ML 2 MG/ML VIAL IV STA (15:05)
[2020-07-19] MEDS ORDERED: MORPHINE SULFATE INJ 4 MG/ML INJ 1ML IV STA (15:05)
[2020-07-19] MEDS ORDERED: SODIUM CHLORIDE 0.9% 1000ML 2,000 ML ONE (15:10)
[2020-07-19] MEDS ORDERED: MORPHINE SULFATE INJ 4 MG/ML INJ 1ML ONE (15:14)
[2020-07-19] MEDS ORDERED: ACETAMINOPHEN 325 MG TAB ONE (15:14)
[2020-07-19] MEDS ORDERED: ONDANSETRON HCL INJ 2MG/ML 2ML 2 MG/ML VIAL ONE (15:14)
[2020-07-19 19:20] VITALS: BP 109/66
== END 2020-07-19 19:00 | disposition other institution (70) ==
LOC: FSED 13:33
DX: R57.1 Hypovolemic shock (principal); R50.9 Fever, unspecified; R11.2 Nausea with vomiting, unspecified; E04.1 Nontoxic single thyroid nodule; I10 Essential (primary) hypertension; J45.909 Unspecified asthma, uncomplicated; Z20.828 Contact with and (suspected) exposure to other viral communicable diseases
CPT/HCPCS: 71250; 74176; 80053; 81003; 82553; 84484; 85025; 85379; 96374; 96375; 99284; J0456; J2270; J2405; J7030; U0002

== ENCOUNTER 2022-05-04 10:02 | Emergency (ER) | payer BC ==
[~2022-05-04] VITALS: Ht 170.2 cm; Wt 95.1 kg
[~2022-05-04 10:02] MED LIST changes: +LOSARTAN POTASS25 MG
[2022-05-04] MEDS ORDERED: ONDANSETRON HCL INJ 2MG/ML 2ML 2 MG/ML VIAL IV STA (11:24)
[2022-05-04] MEDS ORDERED: METHYLPREDNISOLONE SOD SUCC 125 MG/2ML VIAL IV ONE (11:30)
[2022-05-04] MEDS ORDERED: SODIUM CHLORIDE 0.9% 1000ML 1,000 ML IV SCH (11:30)
[2022-05-04] MEDS ORDERED: ALBUTEROL/IPRATROPIUM 3 ML NEB NEB ONE (11:30)
[2022-05-04] MEDS ORDERED: ONDANSETRON HCL INJ 2MG/ML 2ML 2 MG/ML VIAL ONE (12:08)
[2022-05-04] MEDS ORDERED: ALBUTEROL/IPRATROPIUM 3 ML NEB ONE (12:09)
[2022-05-04] MEDS ORDERED: METHYLPREDNISOLONE SOD SUCC 125 MG/2ML VIAL ONE (12:09)
[2022-05-04] MEDS ORDERED: SODIUM CHLORIDE 0.9% 1000ML 1,000 ML ONE (12:09)
[2022-05-04] MEDS ORDERED: CEFDINIR300 MG PO (12:28)
[2022-05-04] MEDS ORDERED: PREDNISONE20 MG PO (12:30)
[2022-05-04 12:56] VITALS: BP 149/87
== END 2022-05-04 12:58 | disposition home or self-care (01) ==
LOC: FSED 10:12
DX: R07.89 Other chest pain (principal); J20.9 Acute bronchitis, unspecified; J45.901 Unspecified asthma with (acute) exacerbation; H66.92 Otitis media, unspecified, left ear; R05.9 Cough, unspecified; I10 Essential (primary) hypertension; K21.9 Gastro-esophageal reflux disease without esophagitis; F41.9 Anxiety disorder, unspecified; M54.9 Dorsalgia, unspecified; G89.29 Other chronic pain; R94.31 Abnormal electrocardiogram [ECG] [EKG]
CPT/HCPCS: 71046; 80053; 82553; 83518; 84484; 85025; 87400; 93005; 99283; J2405; J2930; J7030

== ENCOUNTER → 2023-09-01 | Outpatient (REF) | payer BC ==
[~2023-09-01] MED LIST changes: +CEFDINIR300 MG PO
== END ==
LOC: NM 08:20
PROVIDERS: ATTEND Nurse Practitioner
DX: R10.11 Right upper quadrant pain (principal)
CPT/HCPCS: 78227; A9537